=== PATIENT | female | born 1975 | race Caucasian/White ===

== ENCOUNTER 2020-09-22 14:16 | Emergency (ER) | payer OTHER, SELFPAY ==
[2020-09-22 14:25] VITALS: BP 112/63; PULSE 70; RESP 18; TEMP 36.8; O2SAT 99
--- NOTE | 2020-09-22 14:38 | ED.SKABFB ---
HPI - Skin/Abscess/Foreign Bdy General Chief complaint: Skin/Abscess/Foreign Body Stated complaint: Lump on left side of Neck Time Seen by Provider: 09/22/20 14:39 Source: patient Mode of arrival: ambulatory Limitations: no limitations History of Present Illness HPI narrative: Danielle Og is a 45 yo female with a PMH of depression/ anxiety, cardiomyopathy, benign tumor L neck, copd, comes to [facility] with a lump in the left side of her neck that she just noticed this morning. It is tender to touch. Related Data Home Medications Medication Instructions Recorded Confirmed albuterol sulfate INHALATION 09/22/20 ibuprofen 09/22/20 loratadine mg 09/22/20 Allergies Allergy/AdvReac Type Severity Reaction Status Date / Time No Known Allergies Allergy Verified 09/22/20 14:52 [facility] Past Medical History Medical History Asthma Family History Family History (Updated 09/22/20 @ 14:54 by Virginia Cobos CNP) Other Heart disease Throat cancer Social History Social History (Updated 09/22/20 @ 14:55 by Virginia Cobos CNP) Smoking packs per day: 0.5 Smoking cigarettes per day: 10.0 Smoking status: Current every day smoker Alcohol intake: current Comments At time of signature, I agree with nursing past medical, surgical, social and family history. There is no relevant family history pertinent to the presenting complaint. Exam Narrative: Exam Narrative: GENERAL: This is a well-nourished, well-developed patient, in mild distress. HEAD: normocephalic, atraumatic. EYES:Sclera clear/white. Vision is grossly intact. EARS: External ears normal, auditory canals clear and without drainage, TMs normal without perforation. Hearing grossly intact. NOSE: External nose normal without nasal discharge, nares without redness, no rhinorrhea. THROAT: Mucous membranes moist, posterior pharynx mild redness NECK: Neck supple, non-tender CARDIOVASCULAR: Regular rate and rhythm without murmurs, gallops, or rubs. RESPIRATORY: Clear to auscultation. Breath sounds equal bilaterally. No wheezes, rales, or rhonchi. GASTROINTESTINAL: Abdomen soft, SKIN: warm, intact with no suspicious lesions or rash, good texture and turgor. NEURO: awake, alert, and oriented to person, place and time. There were no obvious focal neurologic abnormalities. Steady gait EXTREMITIES: Normal range of motion. BACK: Nontender without deformity Course Course Emergency Course: Comes to the [facility] with a left-sided neck lump that is tender that she discovered this morning Has an appointment for doctor on the States is tender wants medication so we will try treating adenitis with some penicillin She will follow up with her physician MDM - Skin/Abscess/Foreign Bdy Differential Diagnosis Differential diagnosis: Likely abscess of skin or subcutaneous tissue, urticaria, impetigo, contact dermatitis and other (Adenitis) Critical Care Time Critical Care Time Critical Care Time: No Discharge Plan Discharge Clinical Impression: Acute adenitis Patient Disposition: Home, Self-Care Condition: Stable Instructions: Antibiotic Form, Adenitis (ED) Prescriptions: New cephalexin 500 mg capsule 500 mg PO Q8H Qty: 21 RF: 0 No Action ibuprofen 600 mg tablet RF: 0 albuterol sulfate 90 mcg/actuation HFA aerosol inhaler INHALATION RF: 0 loratadine 10 mg tablet RF: 0 Follow-up/Referrals: Kinga,Virginia Richardson APN [Primary Care Provider] - Time of Disposition: 14:58
== END 2020-09-22 15:00 | disposition home or self-care (01) ==
PROVIDERS: Emergency Provider Nurse Practitioner; PCP Nurse Practitioner Family
DX: L04.0 Acute lymphadenitis of face, head and neck (principal); J45.909 Unspecified asthma, uncomplicated
CPT/HCPCS: 99213; G0463

== ENCOUNTER 2020-10-15 10:02 | Emergency (ER) | payer OTHER, SELFPAY ==
[2020-10-15 10:11] VITALS: BP 107/70; PULSE 60; RESP 14; TEMP 37.4; O2SAT 99
--- NOTE | 2020-10-15 10:32 | ED.URI ---
HPI - URI/Sore Throat General Chief Complaint: Upper Respiratory Infection Stated Complaint: neck and throat swollen History of Present Illness HPI Narrative: This a 45-year-old female comes in complaining of a sore throat states that it feels like her throat is swelling says that the sore throat started yesterday. Patient denies taking anything for symptoms patient denies having a fever. Patient states that she is taking some allergy medicine denies having any shortness of breath at this time. Otherwise she Related Data Home Medications Medication Instructions Recorded Confirmed albuterol sulfate 90 mcg INHALATION Q4H PRN 09/22/20 10/15/20 loratadine 10 mg PO DAILY 09/22/20 10/15/20 Allergies Allergy/AdvReac Type Severity Reaction Status Date / Time No Known Allergies Allergy Verified 10/15/20 10:20 Review of Systems Review of Systems: Narrative: CONSTITUTIONAL: Denies fever, chills, or sweats. EYES: Denies visual changes, redness, or discharge. ENT: Denies rhinorrhea, congestion, reports sore throat, or otalgia. CARDIOVASCULAR:Denies chest pain, palpitations, or edema. RESPIRATORY: Denies cough or dyspnea. GASTROINTESTINAL: Denies abdominal pain, nausea, vomiting, or diarrhea. GENITOURINARY: Denies dysuria or hematuria. SKIN:[Denies rash or itching. MUSCULOSKELETAL:Denies back pain, joint pain, or myalgia. NEUROLOGIC: Denies headache, numbness, or weakness. PSYCHIATRIC:Denies anxiety or depression PMFSH Past Medical History Medical History Asthma Family History Family History (Updated 09/22/20 @ 14:54 by Virginia Cobos CNP) Other Heart disease Throat cancer Social History Social History (Updated 09/22/20 @ 14:55 by Virginia Cobos CNP) Smoking packs per day: 0.5 Smoking cigarettes per day: 10.0 Smoking status: Current every day smoker Alcohol intake: current Comments At time as signature, I have reviewed and agree with nursing past medical, social, surgical and family history. Please see nursing chart for further information. There is no relevant family history pertinent to the presenting complaint. Exam Narrative: Exam Narrative: GENERAL:Well-appearing, well-nourished, and in no acute distress. HEAD:Normocephalic, atraumatic. EYES: PERRLA and EOMI. ENT: Nares clear, no rhinorrhea or epistaxis. Mucous membranes moist. Tonsils swollen excessive saliva no erythema noted NECK: Supple. CHEST: Clear to auscultation. No respiratory distress. HEART: Regular rate and rhythm. No murmur heard. Normal peripheral pulses. ABDOMEN: Soft, nontender, nondistended, normal active bowel sounds. EXTREMITIES: Normal range of motion. No edema. SKIN: Warm, dry, no rash. NEURO: No focal deficits. Alert and oriented x3. Course RN SUPPLEMENTAL/PA Physician Supervision Positive strep test Vital Signs Vital signs: Vital Signs Temperature 99.3 F 10/15/20 10:11 Pulse Rate 60 10/15/20 10:11 Respiratory Rate 14 10/15/20 10:11 Blood Pressure 107/70 10/15/20 10:11 Pulse Oximetry 99 10/15/20 10:11 Temperature 99.3 F 10/15/20 10:11 Pulse Rate 60 10/15/20 10:11 Respiratory Rate 14 10/15/20 10:11 Blood Pressure 107/70 10/15/20 10:11 Pulse Oximetry 99 10/15/20 10:11 MDM - URI/Sore Throat Differential Diagnosis Differential diagnosis: Likely upper respiratory infection, sinusitis, bronchitis, influenza and pharyngitis Lab Data Labs: Strep Screen Positive Group A Strep *(Reference Range: Negative)* Discharge Plan Discharge Clinical Impression: Pharyngitis Qualifiers: Pharyngitis/tonsillitis etiology: streptococcus Qualified Code(s): J02.0 - Streptococcal pharyngitis Patient Disposition: Home, Self-Care Condition: Stable Instructions: Antibiotic Form, Strep Throat (ED) Additional Instructions: Strep throat take the medication as prescribed. Salt w
== END 2020-10-15 10:41 | disposition home or self-care (01) ==
PROVIDERS: Emergency Provider Nurse Practitioner Family; PCP Nurse Practitioner Family
DX: J02.0 Streptococcal pharyngitis (principal); J45.909 Unspecified asthma, uncomplicated
CPT/HCPCS: 87880; 99213; G0463

== ENCOUNTER 2021-08-25 09:06 | Emergency (ER) | payer OTHER, SELFPAY ==
[2021-08-25 09:21] VITALS: BP 113/74; PULSE 75; RESP 20; TEMP 36.9; O2SAT 99
--- NOTE | 2021-08-25 09:49 | ED.EYEPROB ---
HPI - Eye Problem General Chief complaint: Eye Problems Stated complaint: left eye Time Seen by Provider: 08/25/21 09:24 Source: patient and RN notes reviewed Mode of arrival: ambulatory Limitations: no limitations History of Present Illness HPI Narrative: Patient presents today complaining of twitching to the left eye with left-sided headache and, head fog that started last night. She also reports some intermittent decreased vision in the left eye. Use she currently denies any pain. She has not taken any medication for symptoms prior to arrival. Denies dizziness, lightheadedness, numbness or tingling in the extremities, nausea or vomiting. Denies redness or drainage in the eye. Denies history of migraines or chronic headaches. Upon arrival, patient's visual acuity was 20/25 in the right eye, and 20/30 in the left affected eye, but she continues to states she is unable to see from the left eye. MD chief complaint: vision change Related Data Home Medications Medication Instructions Recorded Confirmed albuterol sulfate 90 mcg INHALATION Q4H PRN 09/22/20 08/25/21 loratadine 10 mg PO DAILY 09/22/20 08/25/21 Allergies Allergy/AdvReac Type Severity Reaction Status Date / Time No Known Allergies Allergy Verified 08/25/21 09:15 Review of Systems Review of Systems: CONSTITUTIONAL: Denies body aches, fever, chills, or sweats. EYES: Denies redness, or discharge. + Left eye twitching and vision changes ENT: Denies rhinorrhea, congestion, sore throat, or otalgia. CARDIOVASCULAR: Denies chest pain, palpitations, or edema. RESPIRATORY: Denies cough or dyspnea. GASTROINTESTINAL: Denies abdominal pain, nausea, vomiting, or diarrhea. GENITOURINARY: Denies dysuria or hematuria. SKIN: Denies rash, itching, or wounds. MUSCULOSKELETAL: Denies back pain, joint pain, or myalgia. NEUROLOGIC: Denies numbness, tingling, or weakness. + Headache?resolved PSYCH: Denies depression or anxiety. [facility] Past Medical History Medical History Asthma Family History Family History Other Heart disease Throat cancer Social History Social History Smoking packs per day: 0.5 Smoking cigarettes per day: 10.0 Smoking status: Current every day smoker Alcohol intake: current Comments At time of signature, I have reviewed and agree with nursing past medical, surgical, social and family history unless otherwise noted. Please see nursing chart for further information. There is no relevant family history pertinent to the presenting complaint Exam Narrative: GENERAL: Well-appearing, well-nourished, and in no acute distress. HEAD: Normocephalic, atraumatic. EYES: EOMI. PERRL. No redness or drainage. Conjunctivae normal. ENT: Mucous membranes pink and moist. NECK: Normal AROM. Supple. No lymphadenopathy. CHEST: No respiratory distress. Clear to auscultation. HEART: Regular rate and rhythm. No murmur appreciated. Normal peripheral pulses. EXTREMITIES: Normal range of motion. No edema. SKIN: Warm, dry, no rash. Capillary refill normal. Normal skin turgor. NEURO: No focal deficits. Alert and oriented x3. Gait steady. Finger nose test normal. Hand director family equal and strong. Dorsiflexion plantarflexion equal and strong against resistance. PSYCH: Normal affect. No signs of depression or anxiety. Course Course Emergency Course: I feel it indicated to transfer her to the ER for further evaluation, given the complaint of intermittent vision loss in the left eye. Level of Care: Express Care Visit Vital Signs Vital signs: Vital Signs Temperature 98.5 F 08/25/21 09:21 Pulse Rate 75 08/25/21 09:21 Respiratory Rate 20 08/25/21 09:21 Blood Pressure 113/74 08/25/21 09:21 Pulse Oximetry 99 08/25/21 09:21 Temperature 98.5 F 08/25/21 09:21 Pu
== END 2021-08-25 10:02 | disposition short-term general hospital (02) ==
PROVIDERS: Emergency Provider Nurse Practitioner; PCP Nurse Practitioner Family
DX: H54.62 Unqualified visual loss, left eye, normal vision right eye (principal); F17.210 Nicotine dependence, cigarettes, uncomplicated
CPT/HCPCS: 99213; G0463

== ENCOUNTER 2021-08-30 08:52 | Emergency (ER) | payer OTHER, SELFPAY ==
--- NOTE | 2021-08-30 08:56 | ED.URI ---
HPI - URI/Sore Throat General Chief Complaint: Upper Respiratory Infection Stated Complaint: Sore Throat Time Seen by Provider: 08/30/21 08:56 Source: patient and RN notes reviewed History of Present Illness HPI Narrative: Patient is a 46-year-old female who presents the urgent care with complaints of a scratchy throat. Patient states that she woke up with it today and does have typical year-long seasonal allergies. Patient has not taken her Claritin-D this morning. Patient denies of any fevers, nausea or vomiting. Denies of any exposures to illness. No other acute complaints. No acute distress noted. Patient aware of the plan of care. Some parts of this dictation were generated by voice recognition software and may contain typographical and/or grammatical inaccuracies. Related Data Home Medications Medication Instructions Recorded Confirmed loratadine 10 mg PO DAILY 09/22/20 08/25/21 Allergies Allergy/AdvReac Type Severity Reaction Status Date / Time No Known Allergies Allergy Verified 08/25/21 09:15 Review of Systems Review of Systems: CONSTITUTIONAL: Denies fever, chills, or sweats. EYES: Denies visual changes, redness, or discharge. ENT: Denies rhinorrhea, congestion, or otalgia. reports of scratchy throat CARDIOVASCULAR: Denies chest pain, palpitations, or edema. RESPIRATORY: Denies cough or dyspnea. GASTROINTESTINAL: Denies abdominal pain, nausea, vomiting, or diarrhea. GENITOURINARY: Denies dysuria or hematuria. SKIN: Denies rash or itching. MUSCULOSKELETAL: Denies back pain, joint pain, or myalgia. NEUROLOGIC: Denies headache, numbness, or weakness. All other systems reviewed are negative, except as documented in HPI. [facility] Past Medical History Medical History Asthma Family History Family History Other Heart disease Throat cancer Social History Social History Smoking packs per day: 0.5 Smoking cigarettes per day: 10.0 Smoking status: Current every day smoker Alcohol intake: current Comments At the time of my signature, I reviewed and agree with the nursing past medical, surgical, social, and family history. There is no relevant family history pertinent to the patient complaint. Exam Narrative: GENERAL: This is a well-nourished, well-developed patient, in no apparent distress. HEAD: normocephalic, atraumatic. EYES: PERRL. Sclera clear/white. Vision is grossly intact. EARS: External ears normal, auditory canals clear and without drainage, TMs normal without perforation. Hearing grossly intact. NOSE: External nose normal with no obvious nasal discharge, nares without redness, no rhinorrhea. THROAT: Mucous membranes moist. Mild erythema noted posterior oropharynx with moderate postnasal drainage NECK: Neck supple CARDIOVASCULAR: Regular rate and rhythm without murmurs, gallops, or rubs. RESPIRATORY: Clear to auscultation. Breath sounds equal bilaterally. No wheezes, rales, or rhonchi. SKIN: warm, intact with no suspicious lesions or rash, good texture and turgor. NEURO: awake, alert, and oriented to person, place and time. There were no obvious focal neurologic abnormalities. EXTREMITIES: No clubbing, cyanosis, or edema. Course Course Level of Care: Express Care Visit Vital Signs Vital signs: Vital Signs Temperature 98 F 08/30/21 08:57 Pulse Rate 70 08/30/21 08:57 Respiratory Rate 16 08/30/21 08:57 Blood Pressure 120/70 08/30/21 08:57 Pulse Oximetry 100 08/30/21 08:57 Temperature 98 F 08/30/21 08:57 Pulse Rate 70 08/30/21 08:57 Respiratory Rate 16 08/30/21 08:57 Blood Pressure 120/70 08/30/21 08:57 Pulse Oximetry 100 08/30/21 08:57 Reviewed MDM - URI/Sore Throat MDM Narrative Medical decision making narrative: Reviewed lab results with the patient. She is
[2021-08-30 08:57] VITALS: BP 120/70; PULSE 70; RESP 16; TEMP 36.6; O2SAT 100
== END 2021-08-30 09:37 | disposition home or self-care (01) ==
PROVIDERS: Emergency Provider Nurse Practitioner Family; PCP Nurse Practitioner Family
DX: J02.9 Acute pharyngitis, unspecified (principal); T78.40XA Allergy, unspecified, initial encounter; F17.210 Nicotine dependence, cigarettes, uncomplicated; J45.909 Unspecified asthma, uncomplicated
CPT/HCPCS: 87081; 87880; 99213; G0463

== ENCOUNTER 2021-10-28 07:11 | Emergency (ER) | payer OTHER, SELFPAY ==
--- NOTE | ~2021-10-28 | XR_ITS ---
EXAMINATION: XR shoulder RT min 2V DATE: 10/28/2021 07:43 INDICATION: Posterior right shoulder pain post fall TECHNIQUE: AP internally and externally rotated, AP oblique externally rotated and transscapular Y vi ews of the right shoulder were obtained. COMPARISON: None FINDINGS: Normal alignment. There is abnormal cortical contour at the lateral aspect of the right clavicle whic h has a chronic appearance suggesting sequela of chronic fracture. No other lesions suspicious for fr acture identified. Glenohumeral joint is normal. Mild acromioclavicular osteoarthritis. Bone island a t the humeral head. Visualized portions of the right lung are clear. Soft tissues are unremarkable. IMPRESSION: Irregular cortical contour at the lateral clavicle suspicious for fracture but would favor chronic ov er acute. Correlate for point tenderness at this location. Reviewed, dictated and finalized at location A. IMPRESSION: Irregular cortical contour at the lateral clavicle suspicious for fracture but would favor chronic over acute. Correlate for point tenderness at this location .
[2021-10-28 07:23] VITALS: BP 146/75; PULSE 59; RESP 16; TEMP 36.3; O2SAT 100
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
[2021-10-28 08:27] VITALS: BP 146/75; PULSE 59; RESP 16; TEMP 36.3; O2SAT 100
== END 2021-10-28 08:29 | disposition home or self-care (01) ==
PROVIDERS: Emergency Provider Emergency Medicine; PCP Nurse Practitioner Family
DX: S42.034A Nondisplaced fracture of lateral end of right clavicle, initial encounter for closed fracture (principal); W19.XXXA Unspecified fall, initial encounter
CPT/HCPCS: 73030; 99283; A4565

== ENCOUNTER 2024-09-30 09:16 | Emergency (ER) | payer OTHER, SELFPAY ==
[2024-09-30 09:22] VITALS: BP 112/61; PULSE 64; RESP 20; TEMP 37.2; O2SAT 98
[2024-09-30 09:41] LABS: EDSTREPNEGPOS1 Negative (Negative)
--- NOTE | 2024-09-30 09:41 | ED.URI ---
HPI - URI/Sore Throat General Chief Complaint: Upper Respiratory Infection Stated Complaint: Sore Throat Time Seen by Provider: 09/30/24 09:41 Source: patient Mode of arrival: ambulatory Limitations: no limitations History of Present Illness HPI Narrative: 49-year-old female presents with complaint of Headaches, sore throat, hurts mostly to left side. Pain worse with swallowing. Afebrile but reports chills and fatigue. Denies nausea vomiting diarrhea. all systems reviewed and negative except as noted above. Related Data Home Medications ?Medication ?Instructions ?Recorded ?Confirmed ?Last Taken ?Type albuterol sulfate 90 mcg/actuation inhalation 09/30/24 Unknown History aerosol inhaler azelastine 137 mcg (0.1 %) nasal intranasal 09/30/24 Unknown History spray budesonide-formoterol HFA 80 inhalation 09/30/24 Unknown History mcg-4.5 mcg/actuation aerosol inhaler (Symbicort) fexofenadine 180 mg tablet mg 09/30/24 Unknown History (Allergy Relief (fexofenadine)) nicotine 7 mg/24 hr daily 09/30/24 Unknown History transdermal patch pantoprazole 40 mg tablet,delayed mg PO 09/30/24 Unknown History release Allergies Allergy/AdvReac Type Severity Reaction Status Date / Time No Known Allergies Allergy Verified 09/30/24 09:37 Review of Systems Review of Systems: CONSTITUTIONAL: Denies fever, chills, or sweats. EYES: Denies visual changes, redness, or discharge. ENT: Denies rhinorrhea, congestion . Reports sore throat. Denies otalgia. CARDIOVASCULAR: Denies chest pain, palpitations, or edema. RESPIRATORY: Denies cough or dyspnea. GASTROINTESTINAL: Denies abdominal pain, nausea, vomiting, or diarrhea. GENITOURINARY: Denies dysuria or hematuria. SKIN: Denies rash or itching. MUSCULOSKELETAL: Denies back pain, joint pain, or myalgia. NEUROLOGIC: Denies headache, numbness, or weakness. PSYCHIATRIC: Denies anxiety or depression. All other systems reviewed are negative, except as documented in HPI. [facility] Past Medical History Medical History (Updated 09/30/24 @ 09:50 by Niya Mleendrez NP) Asthma Surgical History Surgical History (Updated 10/28/21 @ 08:05 by Isak UriosteguiMD) History of bilateral tubal ligation Family History Family History Other Heart disease Throat cancer Social History Social History Smoking packs per day: 0.5 Smoking cigarettes per day: 10.0 Smoking status: Current every day smoker Alcohol intake: current Comments At time of signature, agree with nursing past medical, surgical, social and family history. There is no relevant family history pertinent to the presenting complaint. Exam Narrative: GENERAL: This is a well-nourished, well-developed patient, in no apparent distress. HEAD: normocephalic, atraumatic. EYES: PERRL. Sclera clear/white. Vision is grossly intact. EARS: External ears normal, auditory canals clear and without drainage, TMs normal without perforation. Hearing grossly intact. NOSE: External nose normal with no obvious nasal discharge, nares without redness, no rhinorrhea. THROAT: Mucous membranes moist, tonsils erythematous, 1+ bilaterally with exudates. No signs of peritonsillar abscess. NECK: Neck supple, non-tender without lymphadenopathy, masses or thyromegaly. CARDIOVASCULAR: Regular rate and rhythm without murmurs, gallops, or rubs. RESPIRATORY: Clear to auscultation. Breath sounds equal bilaterally. No wheezes, rales, or rhonchi. SKIN: warm, Dry, intact with no suspicious lesions or rash, good texture and turgor. NEURO: awake, alert, and oriented to person, place and time. There were no obvious focal neurologic abnormalities. EXTREMITIES: No joint tenderness, effusion, or edema noted. Course Course Level of Care: Express Care Visit Vital Signs Vital signs: Vital Signs Temperature 37.2 C 09/30/24 09:22 Pulse Rate 64 09/30/24 09:22 Respiratory Rate 20 09/30/24 09:22 Blood Pressure 112/61 09/30/24 09:22 Pulse Oximetry 98 09/30/24 09:22 Oxygen Delivery Room Air 09/30/24 09:22 Temperature 37.2 C 09/30/24 09:22 Pulse Rate 64 09/30/24 09:22 Respiratory Rate 20 09/30/24 09:22 Blood Pressure 112/61 09/30/24 09:22 Pulse Oximetry 98 09/30/24 09:22 Oxygen Delivery Room Air 09/30/24 09:22 Reviewed MDM - URI/Sore Throat MDM Narrative Medical decision making narrative: rapid strep negative. Will treat patient with antibiotic due to patient complaints and exam findings. Patient agrees with plan of care. Patient is alert, nontoxic. Differential Diagnosis Differential diagnosis: Likely upper respiratory infection, sinusitis, viral infection and pharyngitis Lab Data Labs: Lab Results 09/30/24 Range/Units 09:40 POC Grp A Strep Screen Negative (Negative) Discharge Plan Discharge Clinical Impression: Acute tonsillitis Qualifiers: Pharyngitis/tonsillitis etiology: unspecified etiology Qualified Code(s): J03.90 - Acute tonsillitis, unspecified Patient Disposition: Home Condition: Stable Instructions: Antibiotic Form, Tonsillitis (ED) Additional Instructions: your strep test was negative today. Due to your symptoms and exam findings I am prescribing an antibiotic. Take antibiotic as prescribed until gone. Take ibuprofen or Tylenol every 6-8 hours as needed for pain and fever. Drink plenty of water and rest. Follow-up with your primary care physician if symptoms are not improving. Patient Language: Polish Prescriptions: New amoxicillin 875 mg tablet 875 mg PO Q12H 10 Days Qty: 20 0RF No Action fexofenadine [Allergy Relief (fexofenadine)] 180 mg tablet pantoprazole 40 mg tablet,delayed release (DR/EC) PO azelastine 137 mcg (0.1 %) spray,non-aerosol INTRANASAL albuterol sulfate 90 mcg/actuation HFA aerosol inhaler INHALATION nicotine 7 mg/24 hr patch 24 hour budesonide-formoterol [Symbicort] 80-4.5 mcg/actuation HFA aerosol inhaler INHALATION Follow-up/Referrals: Kinga,Virginia Richardson APN [Primary Care Provider] - Time of Disposition: 09:50
--- OUTSIDE RECORDS SUMMARY | 2024-09-30 10:00 | XMS_ITS | Encounter Summary ---
Author Organization [facility] Address [address] [place] [address] Phone Care Team Providers Care City Carrier Assistant Name Role Phone Virginia Donato APRN, MEDICAL PHYSICIST Primary Care Provider [phone] Rowan Cruz APRN, MEDICAL PHYSICIST Unavailable + [phone] Isabel Pepe MD Unavailable [phone] Luis Miguel Naranjo MD Unavailable [phone] Luis Miguel Naranjo MD Unavailable [phone] Encounter Details Date Type Department Care Team (Late st Contact Info) Description 12/12/2022 Transcribe Orders [facility] Patient Access Admitting [address] [place] [id number] Juwan Larson MD [address] [place] [address] Right calf pain (Primary Dx) Social History Tobacco Use Types Packs/Day Years Used Date Smoking Tobacco: Every Day Cigarettes Smokeless Tobacco: Never Alcohol Use Standard Drinks/Week Comments No 0 (1 standard drink = 0.6 oz pur e alcohol) Comments No Sex and Gender Information Value Date Recorded Sex Assigned at Female 12/11/2022 9:35 PM CDT Legal Sex Female 3:26 AM CLEAN OUT DRILLER HELPER Gender Identity Female 12/11/2022 9:35 PM CDT Sexual Orientation Not on file COVID-19 Exposure Response Date Recorded In the last 10 days, have yo u been in contact with someone who was confirmed or suspected to have Coronavirus/COVID-19? No / Unsure 12/11/2022 9:31 PM CDT documented as of this encounter Plan of Treatment Upcoming Encounters Date Type Department Care Team (Late st Contact Info) Description 12/01/2024 8:30 AM CDT [facility] [address] [place] [address] Ritika Coronel, EARTH BURNER, BURLAP WORKER [address] [place] [address] documented as of this encounter Results * (ABNORMAL) D-DIMER (12/12/2022 8:29 AM CDT) D DIMER 0.72(H) <0.50 mcg/mL FEU 12/12/2022 8:58 AM CDT [facility] Blood Venipuncture / Unknown 12/12/2022 8:29 AM CDT 12/12/2022 8:39 AM CDT Narrative [facility] - 12/12/2022 8:58 AM CDT The FDA has approved this method to exclude the diagnosis of DVT and/or PE at the cutoff value of <0.50 mcg/mL FEU. us Juwan Larson MD HEMATOLOGY ORDERABLES Fin al Result [facility] [address] [place] [address] documented in this encounter Visit Diagnoses Diagnosis Right calf pain- Primary documented in this encounter Additional Health Concerns Infection Onset Date Last Indicated Resolved Time COVID - 19 04/08/2023 04/08/2023 04/18/2023 12:1 6 AM CLEAN OUT DRILLER HELPER COVID - 19 06/06/2023 06/06/2023 06/06/2023 11:4 7 AM CLEAN OUT DRILLER HELPER COVID - 19 Confirmed 06/06/2023 06/06/2023 024 12:16 AM CLEAN OUT DRILLER HELPER documented as of this encounter Care Teams City Carrier Assistant Relationship Specialty Start Date End Date Virginia Donato APRN, MEDICAL PHYSICIST [address] [facility] [address] [place] [address] PCP - General Family Medicine 11/30/15 Rowan Cruz APRN, MEDICAL PHYSICIST #2 [facility] [address] [place] [address] Nurse Practitioner Cardiology 08/19/23 Isabel Pepe MD #2 [facility] [address] [place] [address] Consulting Physician Urology 12/27/23 Luis Miguel Naranjo MD [address] [place] [address] Consulting Physician Obstetrics & Gynecology 02/05/24 Luis Miguel Naranjo MD [address] [place] [address] Consulting Physician Obstetrics & Gynecology 03/13/24 documented as of this encounter
--- OUTSIDE RECORDS SUMMARY | 2024-09-30 10:01 | XMS_ITS | Encounter Summary ---
Author Organization [facility] Address [address] [place] [address] Phone Care Team Providers Care Hand Bunch Maker Name Role Phone Virginia Donato APRN, DOCTOR OF OPTOMETRY Primary Care Provider [phone] Rowan Cruz APRN, DOCTOR OF OPTOMETRY Unavailable [phone] Isabel Pepe MD Unavailable [phone] Luis Miguel Naranjo MD Unavailable [phone] Luis Miguel Naranjo MD Unavailable [phone] Reason for Referral * PT/OT/ST (Routine) - Authorized Specialty Diagnoses / Procedures Referred By Contac t Referred To Contact Physical Therapy Diagnoses Radiculopathy, lumbar region Other dorsalgia Pain in left shoulder Kaykay Fairchild PAC [address] [place] [address] Phone: tel: fax: [facility] [address] [facility], [address] [address] Phone: tel: fax: Referral ID Status Reason Start Date Expiration Date V isits Requested Visits Authorized [id number] Authorized 05/29/2024 50 12 Scheduling Instructions GRINDER APPRENTICE Encounter Details Date Type Department Care Team (Latest Contact Info) Description 05/29/2024 Transcribe Orders [facility] [address] [place] [address] Kaykay Fairchild PAC [address] [place] [address] Radiculopathy, lumbar region (Primary Dx); Other dorsalgia Social History Tobacco Use Types Packs/Day Years Used Date Smoking Tobacco: Every Day Cigarettes Smokeless Tobacco: Never Alcohol Use Standard Drinks/Week Comments No 0 (1 standard drink = 0.6 oz pur e alcohol) Sexually Active Control Partners Comments Not Currently Comments Unknown Sex and Gender Information Value Date Recorded Sex Assigned at Female 12/11/2022 9:35 PM CDT Legal Sex Female 3:26 AM LENS GRINDER APPRENTICE Gender Identity Female 12/11/2022 9:35 PM CDT Sexual Orientation Not on file documented as of this encounter Plan of Treatment Upcoming Encounters Date Type Department Care Team (Late st Contact Info) Description 12/01/2024 8:30 AM CDT [facility] [address] [place] [address] Ritika Coronel APRN, SIGN DESIGNER [address] [place] [address] Scheduled Referrals Name Type Priority Associated Diagnoses Orde r Schedule PHYSICAL THERAPY REFERRAL Outpatient Referral Routine Radiculopathy, lumbar region Other dorsalgia Expected: 05/29/2024, Expires: 05/29/2025 documented as of this encounter Visit Diagnoses Diagnosis Radiculopathy, lumbar region- Primary Thoracic or lumbosacral neuritis or radiculitis, unspecified Other dorsalgia documented in this encounter Care Teams Hand Bunch Maker Relationship Specialty Start Date End Date Virginia Donato APRN, DOCTOR OF OPTOMETRY [address] [place] [address] PCP - General Family Medicine 11/30/15 Rowan Cruz APRN, DOCTOR OF OPTOMETRY [address] [facility] [address] [place] [address] Nurse Practitioner Cardiology 08/19/23 Isabel Peep MD #[address] [place] [address] Consulting Physician Urology 12/27/23 Luis Miguel Naranjo MD #[address] [place] [address] Consulting Physician Obstetrics & Gynecology 02/05/24 Luis Miguel Naranjo MD #[address] [place] [address] Consulting Physician Obstetrics & Gynecology 03/13/24 documented as of this encounter
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
--- OUTSIDE RECORDS SUMMARY | 2024-09-30 10:01 | XMS_ITS | Referral Summary ---
Author Organization [facility] Address [address] [place] [address] Care Team Providers Care Warehouse Helper Name Role Phone Virginia Donato NP Primary Care Provider [phone] Encounters Date Type Department Care Team Description 08/06/2024 Telephone [facility] Pulmonary at [address] [place] [address] Emi Meyer LPN Med Management 08/05/2024 10:45 AM CDT Office Visit [facility] Pulmonary at [address] [place] [address] Guzman Rosales DO Asthma-COPD overlap syndrome (HCC) (Primary Dx); Chronic rhinosinusitis; Gastroesophageal reflux disease without esophagitis; Tobacco use disorder from Last 3 Months Allergies Active Allergy Reactions Criticality Noted Date [...] mg total) by mouth daily 30 tablet 11 02/04/[address] (PROTONIX) [...] after use. Do not swallow. 1 each 08/08/19 25 Active nicotine (NICODERM CQ) 7 mgIndications: Tobacco use disorder Place 1 patch on the skin daily for 24 hours 18 patch 09/12/19 25 025 Active nicotine (NICODERM CQ) [address] 1 patch on the skin daily for 24 hours 18 patch 08/22/19 025 Discontinued Active Problems Problem Noted Date Diagnosed Date Asthma-COPD overlap syndrome 05/06/2024 Chronic rhinosinusitis 05/06/2024 Gastroesophageal reflux disease without esophagi tis 05/06/2024 Tobacco use disorder 02/04/2024 Social History Tobacco Use Types Packs/Day Years [...] on file Legal Sex Female 3:40 AM FIELD COORDINATOR Gender Identity Not on file Sexual Orientation Not on file Last Filed Vital Signs Vital Sign Reading Time Taken Comments Blood Pressure 110/70 08/05/2024 10:52 AM CDT Pulse 81 08/05/2024 10:52 AM CDT Temperature 36.6 C (97.9 F) 08/05/2024 10:52 AM CDT Respiratory Rate 18 06/26/2024 3:35 PM FIELD COORDINATOR Oxygen Saturation 96% 08/05/2024 10:52 AM CDT Inhaled Oxygen Concentration - - Weight 78.2 kg (172 lb 4.8 oz) 08/05/2024 10:52 AM CDT Height 157.5 cm (5' 2) 08/05/2024 10:52 AM CDT Body Mass Index 31.51 08/05/2024 10:52 AM CDT Plan of Treatment Not on file Insurance [facility] Member Subscriber Plan / Payer (Ef fective 2019-Present) Name:Danielle Og Relation to Subscriber:Self Name:Danielle Og Payer ID:[id number] (NAIC) Type:MEDICAID RISK OTHER Address: [place] [id number] [facility] Care Teams Warehouse Helper Relationship Specialty Start Date End Date Virginia Donato NP [address] [place] [address] PCP - General 11/03/19
--- OUTSIDE RECORDS SUMMARY | 2024-09-30 10:01 | XMS_ITS | CONTINUITY OF CARE DOCUMENT ---
Author Name ritu jennifertg Address Unknown Organization [facility] Address [address] [place] [address] Phone [phone] Care Team Providers Care Park Keeper Name Role Phone Ras Milton MD Unavailable AKINS SCULPTURE CONSERVATOR-C, MARCELA Unavailable [phone] AKINS SCULPTURE CONSERVATOR-C, MARCELA Unavailable [phone] PROBLEMS Condition Status Date Provider Notes Right ventricular dilatation active Ras Milton MD Smoker active Ras Milton MD Dyspnea on exertion active Ras Argueta Abnormal EKG active Ras Milton MD Chest pain active Ras Milton MD Anxiety active Ras Milton MD Snoring, no YENNIFER active Ras Milton MD ENCOUNTERS Date Type Provider Location Encounter Diag nosis - In-person encounter Office Visit Ras Milton MD [facility] - In-person encounter Office Visit Ras Milton MD [facility] - In-person encounter Office Visit Ras Milton MD [facility] Snoring, no YENNIFER - In-person encounter Office Visit Ras Milton MD [facility] - In-person encounter Office Visit Ras Milton MD [facility] - In-person encounter Office Visit Ras Milton MD [facility] Right ventricular dilatationSmokerDyspnea on exertionAbnormal EKGChest painAnxietySnoring, no YENNIFER VITAL SIGNS Date Observation Value Provider blood pressure, diastolic 79 mm[Hg] Li [facility]kLog[facility] blood pressure, systolic 106 mm[Hg] Vianca [facility]Log[facility] Body Mass Index (Ratio) 23.96 kg/m2 Will Milton MD blood pressure, cuff size large Ta kourtney [place] blood pressure, diastolic 79 mm[Hg] [facility] blood pressure, systolic 106 mm[Hg] [facility] oxygen saturation, oximetry 97 % [facility] respiratory rate E&M 14 /min [facility] pulse rate 72 /min [facility] weight E&M 131.0 [lb_av] [facility] height E&M 62 [in_i] [facility] Body Mass Index (Ratio) 27.25 kg/m2 Trac dino Lively blood pressure, diastolic 84 mm[Hg] Ma rsha O'Patrick blood pressure, systolic 122 mm[Hg] Mar chary O'Patrick oxygen saturation, oximetry 97 % Brianna O'Patrick respiratory rate E&M 16 /min Brianna O'Patrick pulse rate 55 /min Brianna O'Patrick blood pressure, resting Yes Reliance flores O'Patrick weight E&M 149 [lb_av] Brianna O'Patrick height E&M 62 [in_i] Brianna O'Patrick Body Mass Index (Ratio) 26.70 kg/m2 Will Milton MD blood pressure, diastolic 73 mm[Hg] Cy ann Small blood pressure, systolic 117 mm[Hg] Sonali Small respiratory rate E&M 16 /min Susan Small blood pressure, cuff size regular Cy nthimarcelo Small oxygen saturation, oximetry 97 % Susan Small pulse rate 74 /min Susan hyman weight E&M 146 [lb_av] Susan Torres l height E&M 62 [in_i] Susan Torres l Body Mass Index (Ratio) 26.34 kg/m2 Will Milton MD blood pressure, diastolic 78 mm[Hg] Ni kki Meera blood pressure, systolic 122 mm[Hg] Srinivas [place] Meera oxygen saturation, oximetry 97 % Berenice Meera pulse rate 97 /min Beernice Meera weight E&M 144 [lb_av] Berenice Meera height E&M 62 [in_i] Berenice Meera temperature site temporal Monae Tank sley temperature E&M 97.7 [degF] Monae Tanks andres Body Mass Index (Ratio) 26.34 kg/m2 Will Milton MD blood pressure, resting No Tons flores Laurent blood pressure, diastolic, left arm 69 mm [Hg] Tonsha Laurent blood pressure, systolic, left arm 106 mm [Hg] Tonsha Laurent blood pressure, diastolic, right arm 74 m m[Hg] Tonsha Laurent blood pressure, systolic, right arm 104 m m[Hg] Tonsha Laurent blood pressure, diastolic 69 mm[Hg] To nsha Laurent blood pressure, systolic 106 mm[Hg] Ton sha Laurent oxygen saturation, oximetry 97 % Tonsha Laurent respiratory rate E&M 16 /min Tonsha Laurent pulse rate 75 /min Tonsha Laurent weight E&M 144 [lb_av] Tonsha Laurent height E&M 62 [in_i] Tonsha Laurent ALLERGIES No Known Drug Allergies RESULTS Date Observation Value Provider Reference Range Interpretation Location pro brain natriuretic peptide 77 pg/mL [facility] 0-130 D-dimer quantitative mcg/mL 0.41 MG/L FEU [facility] 0.00-0.49 thyroid stimulating hormone, serum 2.090 u[IU]/mL [facility] 0.450-4.500 lipoprotein, beta, serum, point, quantitative, calculated 149 mg/dL [facility] 0-99 High very low density lipoproteins 23 mg/dL [facility] 5-40 HDL cholesterol, serum 51 mg/dL [facility] >39 triglyceride, serum, random 113 mg/dL [facility] 0-149 cholesterol, serum 223 mg/dL [facility] 100-199 High calcium, serum 9.3 mg/dL [facility] 8.7-10.2 carbon dioxide, venous blood 25 mmol/L [facility] 20-29 chloride, serum 104 mmol/L [facility] 96-106 potassium, serum 5.0 mmol/L [facility] 3.5-5.2 sodium, serum 145 mmol/L [facility] 134-144 High urea nitrogen/creatini ne ratio, serum 13 [facility] 9-23 eGFR if 98 mL/min/{1. 73_m2} [facility] >59 eGFR if not 85 mL/min/{1. 73_m2} [facility] >59 creatinine, serum 0.85 mg/dL [facility] 0.57-1.00 urea nitrogen, blood 11 mg/dL [facility] 6-24 blood glucose, random 86 mg/dL [facility] 65-99 platelet count 297 X10E3/UL [facility] [phone]/03/20 red blood cell distribution width 12.2 % [facility] 11.7-15.4 mean corpuscular hemoglobin concentration, RBC 32.4 G/DL [facility] 31.5-35.7 mean corpuscular hemoglobin, RBC 29.7 pg [facility] 26.6-33.0 mean corpuscular volume, RBC 92 fL [facility] 79-97 hematocrit, blood 43.5 % [facility] 34.0-46.6 hemoglobin, blood 14.1 g/dL [facility] 11.1-15.9 erythrocyte (RBC) count 4.74 X10E6/UL [facility] 3.77-5.28 leukocyte count, blood 8.3 X10E3/UL [facility] 3.4-10.8 HISTORY OF MEDICATION USE Medication Status Instructions Dates Provider Indications Com ments loratadine 10 mg tablet active Take 1 tablet by mouth once a day Brianna O'Patrick ProAir HFA 90 mcg/actuation HFA aerosol inhaler active Take 2 puff by mouth every four hours as needed 2 Brianna O'Patrick #8.5, 17 days supply, Prescribed by MARCELA AKINS Filled 06/22/2019 SOCIAL HISTORY Date Observation Value Provider social history E&M S moking History: Nathaniel edwards currently smokes every day. Nathaniel edwards has been counseled to quit. Ras Milton MD smoking/tobacco cess ation, patient education and counseling yes Ras Milton MD social history reviewed E&M revi ewed - no changes required Ras Milton MD smoking history, tot al pack/day 1 Jodi Fairbanks number of years as a smoker 28 a Jodi Fairbanks cigarette use yes Jodi Fairbanks smoking status Current every day smoker T seda Fairbanks smoking/tobacco cess ation, patient education and counseling yes Brianna Cantu smoking, date started 1996 Brianna Cantu smoking history, tot al pack/year 365 Brianna Chase'Patrick cigarette use yes Brianna Chase'Patrick smoking status Current every day smoker M silvestre Cantu social history E&M S moking History: P atient currently smokes every day. P atient has been counseled to quit. Ras Milton MD social history reviewed E&M revi ewed - no changes required Ras Milton MD smoking/tobacco cess ation, patient education and counseling yes Susan Small smoking, date started 1996 Jorge Small smoking history, tot al pack/year 365 Susan Small cigarette use yes Susan monroy smoking status Current every day smoker Sam Small social history E&M S moking History: P atient currently smokes every day. P atient has been counseled to quit. Jacques Garcia social history reviewed E&M revi ewed - no changes required Jacques Garcia smoking/tobacco cess ation, patient education and counseling yes Berenice Meera smoking, date started 1996 Berenice Estes smoking history, tot al pack/year 365 Berenice Mitchellafford cigarette use yes Berenice Meera smoking status Current every day smoker N lovei Meera smoking/tobacco cess ation, patient education and counseling yes Ras Milton MD number of grandchildren Ras Milton MD social history E&M S moking History: P atient currently smokes every day. P atient has been counseled to quit. Ras Milton MD social history reviewed E&M revi ewed - no changes required Ras Milton MD smoking, date started 1996 Tonsha Laurent smoking history, tot al pack/year 365 Tonsha Laurent cigarette use yes Tonsha Laurent smoking status Current every day smoker T onsha Laurent FAMILY HISTORY Family Member Condition Father Family History Unkno wn Mother Family History of Co ronary Artery Disease: INSURANCE PROVIDERS Payer name Policy type / Coverage type [place] [employer] party ID RAI MEDICAID Medicaid [id number] ADVANCE DIRECTIVES Name Date DISCUSSED - NO DECISION MADE TREATMENT PLAN Date Name Performer [id number],S, Ras Cardoza ra, [place] [id number],S, Ras Cardoza ra, [place] [id number],S, Ras Cardoza ra[place] [id number],S, Ras Cardoza ra, [place] [id number],S, Ras Cardoza ra, [place] [id number],S, Ras Cardoza ra, [place] [id number],B, Ras Cardoza ra, [place] [id number],S, Ras Cardoza ra, MD [id number],S, Ras Cardoza ra, [place] [id number],B, Ras Cardoza ra, MD Cardiology Ras Argueta Cardiology Ras Argueta Cardiology Ras Argueta Cardiology Ras Argueta Cardiology Ras Argueta Cardiology Ras Argueta Cardiology Ras Argueta Cardiology Ras Argueta Cardiology Ras Argueta Cardiology Ras Argueta Cardiology follow up Ras noel MD Cardiology follow up Ras noel MD Cardiology follow up : 0 .5-1 PPD. 23 year hx. c essation encouraged Ras Milton MD Cardiology follow up Ras noel MD Cardiology follow up Ras noel MD Cardiology Jacques Garcia Cardiology: 0 .5-1 PPD. 23 year hx. c essation encouraged Jacques Nacht Cardiology Jacques Nacht Cardiology Jacques Nacht Cardiology Jacques Nacht Cardiology Ras Argueta Cardiology Ras Argueta Cardiology Ras Argueta Cardiology: 0 .5-1 PPD. 23 year hx. c essation encouraged Ras Milton MD Date Name Sleep Study Home Stress Exercise Card iolite TSH, 3RD GENERATION W/REFLEX TO FT4 LIPID PANEL D-DIMER, QUANTITATIV E PROBNP, N TERMINAL CBC (H/H, RBC, INDIC ES, WBC, PLT) BASIC METABOLIC PANE L W/EGFR Sleep Study Home Stress Exercise Card iolite DLCO - 25095 FRC - 62021 FVC - 35106 HISTORY OF PROCEDURES Procedure Date Procedure Name Provider Procedure Notes S tatus EKG Ras Milton MD complet ed Cardiolite, 2 units Ras Milton MD completed SPECT Images Ras Milton MD compl eted Stress EKG Ras Milton MD complet ed EKG Ras Milton MD complet ed FVC / MVV with bronchodilator - 07100 Ras Milton MD completed FRC - 21066 Ras Milton MD comple matt SpO2 w/o 6min walk/titration Ras Milton MD completed DLCO - 01896 Ras Milton MD compl eted EKG Ras Milton MD complet ed
--- OUTSIDE RECORDS SUMMARY | 2024-09-30 10:01 | XMS_ITS | Clinical Summary ---
Author Organization [facility] Address [address] [place] [address] Phone Care Team Providers Care Stone Rubber Name Role Phone Virginia Donato APRN, FORMULA ROOM WORKER Primary Care Provider [phone] Rowan Cruz APRN, FORMULA ROOM WORKER Unavailable + [phone] Isabel Pepe MD Unavailable [phone] Luis Miguel Naranjo MD Unavailable [phone] Luis Miguel Naranjo MD Unavailable [phone] Allergies Active Allergy Reactions Criticality Noted Date Comments Adhesive Tape Rash 06/05/2017 Medications aspirin 81 MG Chewable Tablet Take 81 mg by mouth daily. Active albuterol 108 (90 Base) MCG/ACT Aerosol Solution take 2 Puffs by inhalation. 4 Active naproxen (NAPROSYN) 500 MG TabletIndication s:Pain Take 1 Tablet by mouth 2 times daily (with meals). Indications: Pain 30 Tablet 4 Active pantoprazole (PROTONIX) 40 MG Tablet Delayed Response Take 40 mg by mouth daily. 4 Active pantoprazole (PROTONIX) 40 MG Recon Soln 4 Active Psyllium (METAMUCIL 3 IN 1 DAILY FIBER PO) 4 Active fexofenadine (TREY) 180 MG Tablet Take 180 mg by mouth daily. 4 Active tiZANidine HCl (Zanaflex) 4 MG Capsule Take 1 Capsule by mouth 3 times daily. 20 Capsule 4 Active ondansetron (ZOFRAN-ODT) 4 MG TABLET DISPERSIBLE Take 1 Tablet by mouth every 8 hours as needed for Nausea - 1st line. 20 Tablet 4 Active clopidogrel (PLAVIX) 75 MG Tablet Take 1 Tablet by mouth daily. 30 Tablet 5 Active methylPREDNISolo ne (MEDROL DOSPACK) 4 MG Tablet Therapy Pack See product package insert for dosing schedule 21 Tablet 5 Active Active Problems Problem Noted Date Diagnosed Date Anxiety state Arthropathy Cough Constipation Neoplasm Encounters Date Type Department Care Team Description 09/11/2024 10:57 PM CDT - 09/12/2024 12:16 AM CDT Emergency [facility] Emergency [address] [place] [address] Ismael Stewart MD Trigeminal neuralgia Discharge Disposition: Discharged to home or Selfcare 09/11/2024 Travel 09/04/2024 1:15 AM CDT - 09/04/2024 2:33 AM CDT Emergency [facility] [address] [place] [address] Juwan Larson MD Chest wall pain Discharge Disposition: Discharged to home or Selfcare 09/04/2024 Travel 08/23/2024 10:06 PM CDT - 08/23/2024 11:34 PM CDT [facility] [address] [place] [address] Juwan Larson MD Hematuria Discharge Disposition: Discharged to home or Selfcare 08/23/2024 Travel 07/17/2024 8:30 AM CDT Physical Therapy [facility] [address] [facility], [place] [address] [address] Kaykay Fairchild, PAC Severo Gomez, DENTAL RESIDENT Radiculopathy, lumbar region (Primary Dx) Discharge Disposition: Discharged to home or Selfcare 07/15/2024 Travel 07/09/2024 8:30 AM CDT Physical Therapy [facility] [address], [place] [address] [place] [address] Kaykay Fairchild, TRAVON Mcgee, Mary M, PT Radiculopathy, lumbar region (Primary Dx) Discharge Disposition: Discharged to home or Selfcare 07/08/2024 Travel 07/07/2024 8:45 AM CDT Physical Therapy [facility] [address], [place] [address] [place] [address] Kaykay Fairchild PAC Middleton, Mary M, PT Radiculopathy, lumbar region (Primary Dx) Discharge Disposition: Discharged to home or Selfcare 07/05/2024 Travel 07/03/2024 8:00 AM CDT Physical Therapy [facility] [address], [place] [address] Kaykay Fairchild, TRAVON Mcgee, Mary M, PT Radiculopathy, lumbar region (Primary Dx) Discharge Disposition: Discharged to home or Selfcare 07/02/2024 Travel 07/01/2024 8:30 AM CDT Physical Therapy [facility] [address], [place] [address] [place] [address] Kaykay Fairchild PAC Stewart, James R, DENTAL RESIDENT Radiculopathy, lumbar region (Primary Dx) Discharge Disposition: Discharged to home or Selfcare 07/01/2024 Travel from Last 3 Months Immunizations Immunization Administration Dates Next Due Covid-19, Mrna, Lnp-s, Pf, 3 0 Mcg/0.3 Ml Dose (Pfizer) 01/17/2021 TDAP Vaccine 02/23/2015,11/04/2012,04/22/2012 Social History Tobacco Use Types Packs/Day Years Used Date Smoking Tobacco: Every Day Cigarettes Smokeless Tobacco: Never Tobacco Cessation:Ready to Q uit: Not Asked; Counseling Given: Not Answered Alcohol Use Standard Drinks/Week Comments No 0 (1 standard drink = 0.6 oz pur e alcohol) Sexually Active Control Partners Comments Not Currently Comments No Sex and Gender Information Value Date Recorded Sex Assigned at Female 12/11/2022 9:35 PM CDT Legal Sex 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 Gender Identity Female 12/11/2022 9:35 PM CDT Sexual Orientation Not on file Last Filed Vital Signs Vital Sign Reading Time Taken Comments Blood Pressure 115/78 09/12/2024 12:00 AM CDT Pulse 69 09/12/2024 12:00 AM CDT Temperature 36.8 C (98.3 F) 09/11/2024 11:01 PM CDT Respiratory Rate 18 09/11/2024 11:0 1 PM CDT Oxygen Saturation 97% 09/12/2024 12: 00 AM CDT Inhaled Oxygen Concentration - - Weight 79.3 kg (174 lb 13.2 oz) 025 11:01 PM CDT Height 157.5 cm (5' 2) 09/11/2024 11:0 1 PM CDT Body Mass Index 31.98 09/11/2024 11:01 PM CDT Plan of Treatment Upcoming Encounters Date Type Department Care Team (Late st Contact Info) Description 12/01/2024 8:30 AM CDT Office Visit [facility] - Neurology [facility] [address] [place] [address] Ritika Coronel, FORESTER [employer]ULTURE, COMMISSARY PRODUCTION SUPERVISOR [address] [place] [address] Health Maintenance Due Date Last Done Comments Hepatitis C Virus (HCV) Screening 1977 Hepatitis B Immunization (1 of 3 - 19+ 3-dose series) 1996 Pneumococcal Immunization Combined (1 of 2 - PCV) 1996 Pap Smear 1998 Cervical Cancer Screening (CCS) 2007 HPV/Cotest 2007 Cologuard 2022 Colonoscopy 2022 Colorectal Cancer Screening 2022 Immunochemical Fecal Occult Blood 2022 SARS-COV-2 Immunization ( season) 2023 08/14/2021, 02/08/2021, 01/17/2021 Influenza Immunization (Season Ended) 2024 Td Immunization Every 10 Years (Adults With 1 Tdap) 02/23/2025 02/23/2015, 11/04/2012, 04/22/2012 Mammogram 03/25/2025 03/25/2024, 01/20, 12/20/2021, Additional history exists Respiratory Syncytial Virus (RSV) Immunization (Adult) (1 - 1-dose 75+ series) 2052 DTaP/Tdap/Td Immunization Discontinued 2014, 11/04/2012, 04/22/2012 TdaP Immunization Discontinued 02/23/2015, , 04/22/2012 Discussion re Starting/Frequency of Mammograms Completed 03/25/2024, 02/05/2023, 12/20/2021, Additional history exists Human Papillomavirus (HPV) Immunization Aged Out No longer eligible based on patient's age to complete this topic Meningococcal Immunization (ACWY) Aged Out No longer eligible based on patient's age to complete this topic Rotavirus Immunization Aged Out No lo nger eligible based on patient's age to complete this topic Procedures Procedure Name Priority Date/Time Associated Diagnosis Comments CT HEAD OR BRAIN WO CONTRAST Stat with Interpretation 09/11/2024 11:34 PM CDT CBC WITH AUTO DIFFERENTIAL STAT 09/11/2024 11:13 PM CDT HUMAN CHORIONIC GONADOTROPIN SCRN SERUM STAT 09/11/2024 11:13 PM CDT MAGNESIUM (MG) STAT 09/11/2024 11:13 PM CDT CMP (COMPREHENSIVE METABOLIC PANEL) STAT 09/11/2024 11:13 PM CDT COMPLETE BLOOD COUNT (CBC) WITH DIFF STAT 09/11/2024 11:13 PM CDT XR CHEST SINGLE VIEW PORTABLE STAT 09/04/2024 1:33 AM CDT BLUE TOP TUBE STAT 09/04/2024 12:13 AM CDT CBC WITH AUTO DIFFERENTIAL STAT 09/04/2024 12:13 AM CDT EXTRA TUBES STAT 09/04/2024 12:13 AM CDT HUMAN CHORIONIC GONADOTROPIN SCRN SERUM STAT 09/04/2024 12:13 AM CDT TROPONIN I, HIGH SENSITIVITY (HSTRP) STAT 09/04/2024 12:13 AM CDT CMP (COMPREHENSIVE METABOLIC PANEL) STAT 09/04/2024 12:13 AM CDT COMPLETE BLOOD COUNT (CBC) WITH DIFF STAT 09/04/2024 12:13 AM CDT EKG 12 LEAD STAT 09/03/2024 11:58 PM CDT EKG SCAN 09/03/2024 12:00 AM CDT URINALYSIS REFLEX IF INDICATED BY ABNORMAL RESULTS STAT 08/23/2024 10:34 PM CDT DAQUAN SCREENING BILATERAL DIGITAL W CAD W LUCIO Routine 03/25/2024 1:33 PM HIDE AND SKIN CLASSER Encounter for screening mammogram for malignant neoplasm of breast from Last 3 Months or Most Recently Relevant to Health Maintenance Results * CT HEAD OR BRAIN WO CONTRAST (09/11/2024 11:34 PM CDT) Anatomical Region Laterality Modality Head N/A Computed Tomogra phy 09/11/2024 11:5 0 PM CDT Impressions 09/11/2024 11:53 PM CDT IMPRESSION: No acute abnormality identified. Narrative 09/11/2024 11:53 PM CDT EXAM DESCRIPTION: CT HEAD OR BRAIN WO CONTRAST REASON FOR STUDY: Right facial pain and numbness worsening today TECHNIQUE: Axial images acquired through the brain without intravenous contrast. Images stored on PACS. Automated exposure control was used as a dose optimization technique for this examination. COMPARISON: 05/10/2024 FINDINGS: BRAIN: No mass, hemorrhage, or recent infarct. Normal white matter. Volume within normal limits for age. VASCULAR: No dense vessel or obvious aneurysm. EXTRA-AXIAL SPACES: No mass or fluid collection. ORBITS/GLOBES: Unremarkable. SOFT TISSUES: Unremarkable. BONES/SINUSES: No fracture or lesion. Paranasal sinuses and other skullbase airspaces are clear. THIS IS AN ELECTRONICALLY VERIFIED FINAL REPORT 09/11/2024 11:50 PM - Electronically signed by Jim Barnes M.D. AR: RAVEN Report ID: [id number] Reading Location: [id number] Procedure Note Jim Barnes MD - 09/11/2024 EXAM DESCRIPTION: CT HEAD OR BRAIN WO CONTRAST REASON FOR STUDY: Right facial pain and numbness worsening today TECHNIQUE: Axial images acquired through the brain without intravenous contrast. Images stored on PACS. Automated exposure control was used as a dose optimization technique for this examination. COMPARISON: 05/10/2024 FINDINGS: BRAIN: No mass, hemorrhage, or recent infarct. Normal white matter. Volume within normal limits for age. VASCULAR: No dense vessel or obvious aneurysm. EXTRA-AXIAL SPACES: No mass or fluid collection. ORBITS/GLOBES: Unremarkable. SOFT TISSUES: Unremarkable. BONES/SINUSES: No fracture or lesion. Paranasal sinuses and other skullbase airspaces are clear. THIS IS AN ELECTRONICALLY VERIFIED FINAL REPORT 09/11/2024 11:50 PM - Electronically signed by Jim Barnes M.D. AR: RAVEN Report ID: [id number] Reading Location: [id number] IMPRESSION: No acute abnormality identified. us Ismael Stewart MD IM CT ORDERABLES Final R esult * (ABNORMAL) CBC with Auto Differential (09/11/2024 11:13 PM CDT) Only the most recent of2 resultswithin the time period is included. WBC 9.68 4.00 - 12.00 10(3)/mcL 09/11/2024 11:30 PM CDT [facility] RBC 4.74 3.80 - 5.30 10(6)/mcL 09/11/2024 11:30 PM CDT [facility] HEMOGLOBIN (HGB) 14.0 12.0 - 15.8 g/dL 09/11/2024 11:30 PM CDT [facility] HEMATOCRIT (HCT) 42.0 36.0 - 47.0 % 09/11/2024 11:30 PM CDT [facility] MCV 88.6 82.0 - 96.0 fL 09/11/2024 11:30 PM CDT [facility] MCH 29.5 26.0 - 34.0 pg 09/11/2024 11:30 PM CDT [facility] MCHC 33.3 31.0 - 36.0 g/dL 09/11/2024 11:30 PM CDT [facility] PLATELET COUNT 290 140 - 440 10(3)/mcL 09/11/2024 11:30 PM CDT [facility] RDW 13.9 11.8 - 15.5 % 09/11/2024 11:30 PM CDT [facility] MPV 10.2 9.7 - 12.4 fL 09/11/2024 11:30 PM CDT [facility] NEUTROPHILS 53.7 47.0 - 73.0 % 09/11/2024 11:30 PM CDT [facility] LYMPHOCYTES 37.6 18.0 - 42.0 % 09/11/2024 11:30 PM CDT [facility] MONOCYTES 5.5 4.0 - 12.0 % 09/11/2024 11:30 PM CDT [facility] EOSINOPHILS 2.8 0.0 - 5.0 % 09/11/2024 11:30 PM CDT [facility] BASOPHILS 0.4 0.0 - 1.0 % 09/11/2024 11:30 PM CDT [facility] ABSOLUTE NEUTROPHILS 5.20 1.60 - 7.70 10(3)/mcL 09/11/2024 11:30 PM CDT [facility] ABSOLUTE LYMPHOCYTES 3.64(H) 1.30 - 3.20 10(3)/[facility] 09/11/2024 11:30 PM CDT [facility] ABSOLUTE MONOCYTES 0.53 0.20 - 1.00 10(3)/[facility] 09/11/2024 11:30 PM CDT [facility] ABSOLUTE EOSINOPHIL 0.27 0.00 - 0.40 10(3)/[facility] 09/11/2024 11:30 PM CDT [facility] ABSOLUTE BASOPHILS 0.04 0.00 - 0.10 10(3)/[facility] 09/11/2024 11:30 PM CDT [facility] NRBC PER 100 WBC 0 09/12/19 11:30 PM CDT [facility] Blood Venipuncture / Unknown 09/11/2024 11:13 PM CDT 09/11/2024 11:27 PM CDT us Ismael Stewart MD HEMATOLOGY ORDERABLES Fin al Result Performing Organization Address City/[facility]/ZIP Co de Phone Number [facility] [address] [place] [address] * Human Chorionic Gonadotropin Scrn Serum [id number] (09/11/2024 11:13 PM CDT) Only the most recent of2 resultswithin the time period is included. PREG-HCG Negative 09/11/2024 11:43 PM CDT [facility] Blood Venipuncture / Unknown 09/11/2024 11:13 PM CDT 09/11/2024 11:27 PM CDT Ismael Stewart MD CHEMISTRY ORDERABLES Rosi l Result [facility] [address] [place] [address] * Magnesium (09/11/2024 11:13 PM CDT) MAGNESIUM 1.8 1.6 - 2.6 mg/dL 09/11/2024 11:49 PM CDT [facility] Blood Venipuncture / Unknown 09/11/2024 11:13 PM CDT 09/11/2024 11:27 PM CDT us Ismael Stewart MD CHEMISTRY ORDERABLES Rosi l Result [facility] [address] [place] [address] * (ABNORMAL) CMP (09/11/2024 11:13 PM CDT) Only the most recent of2 resultswithin the time period is included. SODIUM 138 136 - 145 mmol/L 09/11/2024 11:49 PM CDT [facility] POTASSIUM 3.9 3.5 - 5.1 mmol/L 09/11/2024 11:49 PM CDT [facility] CHLORIDE 105 98 - 107 mmol/L 09/11/2024 11:49 PM CDT [facility] CO2, VENOUS 23 22 - 30 mmol/L 09/11/2024 11:49 PM CDT [facility] ANION GAP 13.9 <18.0 mmol/L 09/11/2024 11:49 PM CDT [facility] GLUCOSE 97 70 - 99 mg/dL 09/11/2024 11:49 PM CDT [facility] BUN 17 5 - 18 mg/dL 09/11/2024 11:49 PM CDT [facility] CREATININE, BLOOD 0.70 0.60 - 1.00 mg/dL 09/11/2024 11:49 PM CDT [facility] BUN/CREATININE RATIO 24(H) 12 - 20 ratio 09/11/2024 11:49 PM CDT [facility] TOTAL PROTEIN 7.0 6.0 - 8.0 g/dL 09/11/2024 11:49 PM CDT [facility] ALBUMIN 4.1 3.5 - 5.0 g/dL 09/11/2024 11:49 PM CDT [facility] A/G RATIO 1.4 1.0 - 2.2 09/11/2024 11:49 PM CDT [facility] CALCIUM 8.9 8.7 - 10.5 mg/dL 09/11/2024 11:49 PM CDT [facility] T BILI 0.3 0.2 - 1.2 mg/dL 09/11/2024 11:49 PM CDT [facility] SGOT (AST) 17 <43 U/L 09/11/2024 11:49 PM CDT [facility] SGPT (ALT) 27 <56 U/L 09/11/2024 11:49 PM CDT [facility] ALKALINE PHOSPHATASE 62 40 - 150 U/L 09/11/2024 11:49 PM CDT [facility] GFR, ESTIMATED >60 >=60 09/11/2024 11:49 PM CDT [facility] Comment: Creatinine Clearance is the preferred criteria for selecting drug dose adjustments in renally impaired patients. The GFR is provided as additional pertinent clinical information. GFR is reported in mL/min/1.73 sq m. Calculation based on the Chronic Kidney Disease Epidemiology Collaboration (CKD- EPI) equation refit without adjustment for race. GFR, EST. >60 >=60 025 11:49 PM CDT [facility] GFR, EST. NONAFRICAN >60 >=60 09/11/2024 11:49 PM CDT [facility] Blood Venipuncture / Unknown 09/11/2024 11:13 PM CDT 09/11/2024 11:27 PM CDT us Ismael Stewart MD CHEMISTRY ORDERABLES Rosi l Result [facility] [address] [place] [address] * XR CHEST SINGLE VIEW PORTABLE (09/04/2024 1:33 AM CDT) Anatomical Region Laterality Modality Chest N/A Computed Radiogr aphy 09/04/2024 1:51 AM CDT Impressions 09/04/2024 1:53 AM CDT IMPRESSION: No acute cardiopulmonary abnormality. Narrative 09/04/2024 1:53 AM CDT EXAM DESCRIPTION: XR CHEST SINGLE VIEW PORTABLE REASON FOR STUDY: Chest Pain TECHNIQUE: Single radiographic view of the chest. COMPARISON: Chest x-ray of June 14, 2024. FINDINGS: LUNGS/PLEURA: No focal consolidation or pneumothorax. No pleural effusion. There is no significant change as compared to previous study. HEART/MEDIASTINUM: Cardiac silhouette is normal. Remaining mediastinal silhouettes are unremarkable. HARDWARE/LINES/TUBES: None. BONES: No acute findings. THIS IS AN ELECTRONICALLY VERIFIED FINAL REPORT 09/04/2024 1:51 AM - Electronically signed by Dorota Doe M.D. SN: SN Report ID: [id number] Reading Location: [id number] Procedure Dorota Pablo MD - 09/04/2024 EXAM DESCRIPTION: XR CHEST SINGLE VIEW PORTABLE REASON FOR STUDY: Chest Pain TECHNIQUE: Single radiographic view of the chest. COMPARISON: Chest x-ray of June 14, 2024. FINDINGS: LUNGS/PLEURA: No focal consolidation or pneumothorax. No pleural effusion. There is no significant change as compared to previous study. HEART/MEDIASTINUM: Cardiac silhouette is normal. Remaining mediastinal silhouettes are unremarkable. HARDWARE/LINES/TUBES: None. BONES: No acute findings. THIS IS AN ELECTRONICALLY VERIFIED FINAL REPORT 09/04/2024 1:51 AM - Electronically signed by Dorota Doe M.D. SN: SN Report ID: [id number] Reading Location: [id number] IMPRESSION: No acute cardiopulmonary abnormality. Juwan Larson MD IMG DIAGNOSTIC ORDERABLES Final Result * TROPONIN I, HIGH SENSITIVITY (HSTRP) (09/04/2024 12:13 AM CDT) TROPONIN I, HIGH SENSITIVITY- HOLLIDAY <3 <=14 ng/L 09/04/2024 1:09 AM CDT [facility] Comment: High-sensitivity troponin I results are reported in ng/L making the result appear to be 1,000 times higher than the contemporary troponin I value which is reported in ng/ml. Results from [place]. Blood Venipuncture / Unknown 09/04/2024 12:13 AM CDT 09/04/2024 12:37 AM CDT Juwan Larson MD CHEMISTRY ORDERABLES Rosi l Result Performing Organization Address City/[facility]/ZIP Co de Phone Number [facility] [address] [place] [address] * Blue Top Tube (09/04/2024 12:13 AM CDT) Blood No Phlebotomy Charged / Unknown 09/04/2024 12:13 AM CDT 09/04/2024 12:37 AM CDT Juwan Larson MD HEMATOLOGY ORDERABLES Fin al Result Performing Organization Address City/[facility]/ZIP Co de Phone Number [facility] [address] [place] [address] * EKG 12 LEAD (09/03/2024 11:58 PM CDT) Ventricular Rate 70 BPM EXTERNAL EKG Atrial Rate 70 BPM EXTERNAL EKG P-R Interval 138 ms EXTERNAL EKG QRS Duration 86 ms EXTERNAL EKG Q-T Duration 400 ms EXTERNAL EKG QTC CALCULATION 432 ms EXTERNAL EKG P [place] 51 degrees EXTERNAL EKG R [place] 48 degrees EXTERNAL EKG T [place] 4 degrees EXTERNAL EKG 09/03/2024 11:5 8 PM CDT Impressions EXTERNAL EKG - 09/08/2024 10:07 AM CDT Normal sinus rhythm Cannot rule out Anterior infarct , age undetermined Abnormal ECG No previous ECGs available Confirmed by Lisa Mota ([id number]) on 09/08/2024 10:07:28 AM Narrative Procedure Note Lisa Mota DO - 09/08/2024 IMPRESSION: Normal sinus rhythm Cannot rule out Anterior infarct , age undetermined Abnormal ECG No previous ECGs available Confirmed by Lisa Mota ([id number]) on 09/08/2024 10:07:28 AM Juwan Larson MD IMG ECG ORDERABLES Final Result Performing Organization Address City/[facility]/ZIP Co de Phone Number EXTERNAL EKG * EKG SCAN (09/03/2024 12:00 AM CDT) 09/03/2024 us Provider Scan IMG ECG ORDERABLES Final Result Performing Organization Address City/[facility]/ZIP Co de Phone Number RESULTING AGENCY * (ABNORMAL) URINALYSIS REFLEX IF INDICATED BY ABNORMAL RESULTS (08/23/2024 10:34 PM CDT) SPECIFIC GRAVITY 1.010 1.003 - 1.030 08/23/2024 11:06 PM CDT [facility] URINE PH 7.0 5.0 - 9.0 08/23/2024 11:06 PM CDT [facility] WBC ESTERASE Negative Negative 08/23/2024 11:06 PM CDT [facility] NITRITE Negative Negative 08/23/2024 11:06 PM CDT [facility] PROTEIN, RANDOM URINE 15 mg/dL(A) Negative 08/23/2024 11:06 PM CDT [facility] URINE GLUCOSE, QUAL Negative Negative 08/23/2024 11:06 PM CDT [facility] URINE KETONES Negative Negative 08/23/2024 11:06 PM CDT [facility] UROBILINOGEN Normal Normal mg/dL 08/23/2024 11:06 PM CDT [facility] URINE BLOOD 250 /uL(A) Negative krista/ul 08/23/2024 11:06 PM CDT [facility] URINALYSIS COLOR Yellow 08/23/2024 11:06 PM CDT [facility] URINALYSIS CLARITY Slightly Cloudy 08/23/2024 11:06 PM CDT [facility] WBC (Urine) 0-5 Negative, 0-5 /hpf 08/23/2024 11:06 PM CDT [facility] URINE RBC'S Packed(A) Negative, 0-2 /hpf 08/23/2024 11:06 PM CDT [facility] EPITHELIAL CELLS Occasional /lpf 08/23/2024 11:06 PM CDT [facility] BACTERIA, URINE Few(A) Negative /hpf 08/23/2024 11:06 PM CDT [facility] Urine URINE SPECIMEN OBTAINED BY CLEAN CATCH PROCEDURE / Unknown Non-Phlebotomy Collection / Unknown 08/23/2024 10:34 PM CDT 08/23/2024 10:42 PM CDT us Juwan Larson MD URINE ORDERABLES Final Re sult [facility] [address] [place] [address] * DAQUAN SCREENING BILATERAL DIGITAL W CAD W LUCIO (03/25/2024 1:33 PM HIDE AND SKIN CLASSER) Anatomical Region Laterality Modality breast Bilateral Mammography 03/25/2024 1:30 PM HIDE AND SKIN CLASSER Narrative 03/26/2024 10:24 AM HIDE AND SKIN CLASSER - DAQUAN SCREENING BILATERAL DIGITAL W CAD W LUCIO BILATERAL DIGITAL SCREENING MAMMOGRAM 3D/2D WITH CAD WITH MEDIOLATERAL OBLIQUE CRANIOCAUDAL: 03/25/2024 The study was acquired using digital technology and interpreted from soft copy. Current study was also evaluated with ICAD version 7.2. 2D digital mammographic views, as well as 3D digital tomosynthesis were performed in the CC and MLO projections. CLINICAL: Routine screening. Patient has no complaints. Patient has gained 42 pounds last year. No personal history of cancer. No family history of breast cancer. COMPARISONS: Comparison is made to exams dated: 02/05/2023, 12/20/2021, and 01/03/2021 [facility]. BREAST TISSUE:There are scattered areas of fibroglandular density. FINDINGS: No significant masses, calcifications, or other findings are seen in either breast. There has been no significant interval change. IMPRESSION: NEGATIVE There is no mammographic evidence of malignancy. A 1 year screening mammogram is recommended. A letter will be sent to the patient with these results. The patient will be entered into a reminder system with a target due date of 1 year for her next screening exam. Electronically signed by: Angela monroy/bc:03/25/2024 22:26:51 Cloth Pattern Maker(s): RT Arianne(R)(M), [facility] letter sent: Normal Exam Reading location: [facility] Mammogram BI-RADS: Category 1: Negative Procedure Note Angela Marie MD - 03/26/2024 - DAQUAN SCREENING BILATERAL DIGITAL W CAD W LUCIO BILATERAL DIGITAL SCREENING MAMMOGRAM 3D/2D WITH CAD WITH MEDIOLATERAL OBLIQUE CRANIOCAUDAL: 03/25/2024 The study was acquired using digital technology and interpreted from soft copy. Current study was also evaluated with ICAD version 7.2. 2D digital mammographic views, as well as 3D digital tomosynthesis were performed in the CC and MLO projections. CLINICAL: Routine screening. Patient has no complaints. Patient has gained 42 pounds last year. No personal history of cancer. No family history of breast cancer. COMPARISONS: Comparison is made to exams dated: 02/05/2023, 12/20/2021, and 01/03/2021 [facility]. BREAST TISSUE:There are scattered areas of fibroglandular density. FINDINGS: No significant masses, calcifications, or other findings are seen in either breast. There has been no significant interval change. IMPRESSION: NEGATIVE There is no mammographic evidence of malignancy. A 1 year screening mammogram is recommended. A letter will be sent to the patient with these results. The patient will be entered into a reminder system with a target due date of 1 year for her next screening exam. Electronically signed by: Angela monroy/bc:03/25/2024 22:26:51 Cloth Pattern Maker(s): RT Arianne(R)(M), [facility] letter sent: Normal Exam Reading location: [place] Mammogram BI-RADS: Category 1: Negative us Kimberly Gannon APRN, CNP IMYadiel MAMMO ORDERABLES Final Result from Last 3 Months or Most Recently Relevant to Health Maintenance Insurance MEDICAID [place] Member Subscriber Plan / Payer (Ef fective 2019-Present) Name:Danielle Og Relation to Subscriber:Self Name:Danielle Og Payer ID:[id number] (NAIC) Type:Not on file Address: [place] [id number] MEDICAID RAI Care Teams Stone Rubber Relationship Specialty Start Date End Date Donato, CRISTAL Coleman CNP [address] [place] [phone] (Work) PCP - General Family Medicine 11/30/15 Rowan Cruz APRN, FORMULA ROOM WORKER [address] [facility] [address], [facility] [address] [place] [address] Nurse Practitioner Cardiology 08/19/23 Isabel Pepe MD [address], [facility] [address] [place] [address] Consulting Physician Urology 12/27/23 Luis Miguel Naranjo MD [address] [place] [address] Consulting Physician Obstetrics & Gynecology 02/05/24 Luis Miguel Naranjo MD [address] [place] [address] Consulting Physician Obstetrics & Gynecology 03/13/24
--- OUTSIDE RECORDS SUMMARY | 2024-09-30 10:07 | XMS_ITS | CONTINUITY OF CARE DOCUMENT ---
Author Name ritu jennifertg Address Unknown Organization [facility] Address [address] [place] [address] Phone [phone] Care Team Providers Care Vice President Planning Name Role Phone Ras Milton MD Unavailable [phone] AKINS JEWELRY ENGRAVER-C, MARCELA Unavailable [phone] AKINS JEWELRY ENGRAVER-C, MARCELA Unavailable PROBLEMS Condition Status Date Provider Notes Right ventricular dilatation active aRs Milton MD Smoker active Ras Milton MD Dyspnea on exertion active Ras Argueta Abnormal EKG active Ras Milton MD Chest pain active Ras Milton MD Anxiety active Ras Mliton MD Snoring, no YENNIFER active Ras Milton MD ENCOUNTERS Date Type Provider Location Encounter Diag nosis - In-person encounter Office Visit Ras Milton MD [place] [facility] - In-person encounter Office Visit Ras Milton MD [place] [facility] - In-person encounter Office Visit Ras Milton MD [place] Snoring, no YENNIFER - In-person encounter Office Visit Ras Milton MD [facility] Office - In-person encounter Office Visit Ras Milton MD [place] [facility] - In-person encounter Office Visit Ras Milton MD [place] [facility] Right ventricular dilatationSmokerDyspnea on exertionAbnormal EKGChest painAnxietySnoring, no YENNIFER VITAL SIGNS Date Observation Value Provider blood pressure, diastolic 79 mm[Hg] Li nkLogic blood pressure, systolic 106 mm[Hg] Vianca kLogic Body Mass Index (Ratio) 23.96 kg/m2 Will Milton MD blood pressure, cuff size large Ta kourtney Bodfish blood pressure, diastolic 79 mm[Hg] [facility] blood pressure, systolic 106 mm[Hg] [facility] oxygen saturation, oximetry 97 % [facility] respiratory rate E&M 14 /min [facility] pulse rate 72 /min [facility] weight E&M 131.0 [lb_av] [facility] height E&M 62 [in_i] [facility] Body Mass Index (Ratio) 27.25 kg/m2 Trac dino Lively blood pressure, diastolic 84 mm[Hg] Ma rsha O'Patrick blood pressure, systolic 122 mm[Hg] Mar chary O'Patrick oxygen saturation, oximetry 97 % Brianna O'Patrick respiratory rate E&M 16 /min Brianna O'Patrick pulse rate 55 /min Brianna O'Patrick blood pressure, resting Yes [place] flores O'Patrick weight E&M 149 [lb_av] Brianna [...] % Berenice Meera pulse rate 97 /min Berenice Meera weight E&M 144 [lb_av] Berenice Meera [...] mg/dL LinkLogic 65-99 platelet count 297 X10E3/UL [facility] [phone]/03/20 red blood cell distribution width 12.2 % [...] Payer name Policy type / Coverage type [place] red democrat [place] RAI MEDICAID Medicaid [id number] ADVANCE DIRECTIVES Name Date DISCUSSED - NO DECISION MADE TREATMENT PLAN Date Name Performer [id number],S, Ras Cardoza ra, [place] [id number],S, Ras Cardoza ra, [place] [id number],S, Ras Cardoza ra, MD [id number],S, Ras Cardoza ra, MD [id number],S, Ras Cardoza ra, MD [id number],S, Ras Cardoza ra, MD [id number],B, Ras Cardoza ra, MD [id number],S, Ras Cardoza ra, MD [id number],S, Ras Cardoza ra, MD [id number],B, Ras Cardoza ra, MD Cardiology Ras Argueta [...] Home Stress Exercise Card iolite DLCO - 17495 FRC - 99711 FVC - 06827 HISTORY OF PROCEDURES Procedure Date Procedure Name Provider Procedure Notes S tatus EKG Ras Milton MD complet ed Cardiolite, 2 units Ras Milton MD completed SPECT Images Ras Milton MD compl eted Stress EKG Ras Milton MD complet ed EKG Ras Milton MD complet ed FVC / MVV with bronchodilator - 15789 Ras Milton MD completed FRC - 07950 Ras Milton MD comple matt SpO2 w/o 6min walk/titration Ras Milton MD completed DLCO - 07612 aRs Milton MD compl eted EKG Ras Milton MD complet ed
== END 2024-09-30 09:53 | disposition home or self-care (01) ==
PROVIDERS: Emergency Provider Nurse Practitioner Family; PCP Nurse Practitioner Family
DX: J03.90 Acute tonsillitis, unspecified (principal); F17.210 Nicotine dependence, cigarettes, uncomplicated; J45.909 Unspecified asthma, uncomplicated
CPT/HCPCS: 87081; 87880; 99213; G0463

== ENCOUNTER 2024-10-12 13:29 | Emergency (ER) | payer OTHER, SELFPAY ==
[2024-10-12 13:32] VITALS: BP 130/93; PULSE 79; RESP 20; TEMP 36.7; O2SAT 98
--- NOTE | 2024-10-12 13:44 | ED.BACK ---
HPI - Back Pain/Injury General Chief Complaint: Back Pain/Injury Stated Complaint: shoulders causing pain Time Seen by Provider: 10/12/24 13:45 Source: patient and RN notes reviewed Mode of arrival: ambulatory Limitations: no limitations History of Present Illness HPI Narrative: 49-year-old female presents with concern for tight, painful shoulders. She reports she has dealt with this pain chronically, she has been in physical therapy for it. She reports she is having a flare-up. She denies any decreased strength, sensation, range of motion in the upper extremities or neck. Denies neck pain. She denies taking any medication for her symptoms. She missed work today due to the pain MD elicited complaint: back pain Related Data Home Medications ?Medication ?Instructions ?Recorded ?Confirmed ?Last Taken ?Type albuterol sulfate 90 mcg/actuation inhalation 09/30/24 Unknown History aerosol inhaler azelastine 137 mcg (0.1 %) nasal intranasal 09/30/24 Unknown History spray budesonide-formoterol HFA 80 inhalation 09/30/24 Unknown History mcg-4.5 mcg/actuation aerosol inhaler (Symbicort) fexofenadine 180 mg tablet mg 09/30/24 Unknown History (Allergy Relief (fexofenadine)) nicotine 7 mg/24 hr daily 09/30/24 Unknown History transdermal patch pantoprazole 40 mg tablet,delayed mg PO 09/30/24 Unknown History release atorvastatin 20 mg tablet mg 10/12/24 Unknown History Allergies Allergy/AdvReac Type Severity Reaction Status Date / Time No Known Allergies Allergy Verified 09/30/24 09:37 Review of Systems Review of Systems: CONSTITUTIONAL: Denies malaise, chills, sweats, or fever. CARDIOVASCULAR: Denies chest pain, palpitations, or edema. RESPIRATORY: Denies cough or dyspnea. GASTROINTESTINAL: Denies abdominal pain, nausea, vomiting, diarrhea, loss of bowel function GENITOURINARY: Denies dysuria, hematuria, frequency, loss of bladder function. SKIN: Denies rash or itching. MUSCULOSKELETAL: Reports bilateral shoulder pain and tightness NEUROLOGIC: Denies numbness, weakness, or headache. All systems reviewed & are unremarkable except as noted in HPI and below PMFSH Past Medical History Medical History (Updated 10/12/24 @ 13:52 by Monse Glover NP) Asthma Surgical History Surgical History (Updated 10/28/21 @ 08:05 by Isak UriosteguiMD) History of bilateral tubal ligation Family History Family History Other Heart disease Throat cancer Social History Social History Smoking packs per day: 0.5 Smoking cigarettes per day: 10.0 Smoking status: Current every day smoker Alcohol intake: current Comments At time of signature, agree with nursing past medical, surgical, social and family history. There is no relevant family history pertinent to the presenting complaint Exam Narrative: GENERAL: Well-appearing, well-nourished, and in no acute distress. HEAD: Normocephalic, atraumatic. EYES: PERRLA and EOMI. NECK: Supple. No lymphadenopathy. CHEST: Clear to auscultation. No respiratory distress. HEART: Regular rate and rhythm. Distal pulses palpable and equal, cap refill <3 seconds ABDOMEN: Soft, nontender, nondistended, normal active bowel sounds, no palpable or pulsatile masses. No CVA tenderness MUSCULOSKELETAL: Normal range of motion and strength in all extremities; grossly Normal sensation. Transfers from sitting to standing. SKIN: Warm, dry, no rash. No ecchymosis, erythema, open wounds NEURO: No focal deficits. Alert and oriented x3. Normal gait. PSYCH: Normal mood and affect Course Course Emergency Course: Patient is aware of diagnosis, understands and agrees to treatment plan. Anticipatory guidance given. Patient agrees to follow-up as directed and is aware of reasons to seek care at the emergency department. Portions of this record may have been created with voice recognition software Level of Care: Express Care Visit Vital Signs Vital signs: Vital Signs Temperature 98.0 F 10/12/24 13:32 Pulse Rate 79 10/12/24 13:32 Respiratory Rate 20 10/12/24 13:32 Blood Pressure 130/93 H 10/12/24 13:32 Pulse Oximetry 98 10/12/24 13:32 Oxygen Delivery Room Air 10/12/24 13:32 Temperature 98.0 F 10/12/24 13:32 Pulse Rate 79 10/12/24 13:32 Respiratory Rate 20 10/12/24 13:32 Blood Pressure 130/93 H 10/12/24 13:32 Pulse Oximetry 98 10/12/24 13:32 Oxygen Delivery Room Air 10/12/24 13:32 Reviewed. MDM - Back Pain/Injury MDM Narrative Medical decision making narrative: I evaluated this in the express care. History is obtained from patient who is an independent historian and physical exam was performed.? Available medical records were reviewed. ? Exam findings and relevant testing show no acute concerns or changes; patient is non-toxic appearing and is in no distress. No risk factors or findings concerning for epidural abscess, diskitis, vertebral osteomyelitis, cord compression, cauda equina, vertebral fracture or bone malignancy, AAA, or pyelonephritis. Patient instructed to consider further imaging and workup through their primary care physician as an outpatient if symptoms persist. ? Differential diagnosis and treatment plan were discussed with the patient. Patient agrees with discussion and after shared medical decision making agrees with plan of care. All questions were answered to the patient's satisfaction. Patient is appropriate for outpatient treatment and follow-up. Critical Care Time Critical Care Time Critical Care Time: No Discharge Plan Discharge Clinical Impression: Bilateral shoulder pain Patient Disposition: Home Condition: Stable Instructions: Ice Pack Application (ED) Additional Instructions: Please follow up with your Primary Care Doctor within 48-72 hours - call for an appointment. Activity as tolerated. Take Motrin 800mg every 6-8 hours with food for the next 2-3 days, take muscle relaxers every 8 hours as needed for muscle spasm- do not drive or make any important decisions while on this medication for it can make you drowsy. You may apply ice to the area as needed. If you experience any worsening pain, swelling, numbness, weakness please go to ER. Patient Language: South Korean Prescriptions: New cyclobenzaprine 10 mg tablet 10 mg PO TID PRN (Reason: muscle spasm) Qty: 20 0RF ibuprofen 800 mg tablet 800 mg PO Q6H PRN (Reason: pain) Qty: 30 0RF No Action fexofenadine [Allergy Relief (fexofenadine)] 180 mg tablet pantoprazole 40 mg tablet,delayed release (DR/EC) PO azelastine 137 mcg (0.1 %) spray,non-aerosol INTRANASAL albuterol sulfate 90 mcg/actuation HFA aerosol inhaler INHALATION nicotine 7 mg/24 hr patch 24 hour budesonide-formoterol [Symbicort] 80-4.5 mcg/actuation HFA aerosol inhaler INHALATION atorvastatin 20 mg tablet clopidogrel 75 mg tablet Follow-up/Referrals: Donato,Virginia Richardson APN [Primary Care Provider] - Stand Alone Forms: Work/School Release IP Time of Disposition: 13:56
== END 2024-10-12 14:06 | disposition home or self-care (01) ==
PROVIDERS: Emergency Provider Nurse Practitioner; PCP Nurse Practitioner Family
DX: M25.512 Pain in left shoulder (principal); M25.511 Pain in right shoulder; F17.210 Nicotine dependence, cigarettes, uncomplicated; J45.909 Unspecified asthma, uncomplicated
CPT/HCPCS: 99213; G0463

== ENCOUNTER 2025-03-24 17:43 | Emergency (ER) | payer OTHER, SELFPAY ==
[2025-03-24 17:47] VITALS: BP 123/62; PULSE 64; RESP 16; TEMP 36.6; O2SAT 99
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
--- OUTSIDE RECORDS SUMMARY | 2025-03-24 17:47 | XMS_ITS | Encounter Summary ---
Author Organization [facility] Address [address] [place] [address] Phone Care Team Providers Care Videotape Operator Name Role Phone Virginia Donato APRN, FISH NET STRINGER Primary Care Provider [phone] Rowan Cruz APRN, FISH NET STRINGER Unavailable + [phone] Isabel Pepe MD Unavailable [phone] Luis Miguel Naranjo MD Unavailable [phone] Luis Miguel Naranjo MD Unavailable [phone] Ritika Coroenl APRN, [facility] Unavailable + [phone] Reason for Referral * PT/OT/ST (Routine) - Authorized Specialty Diagnoses / Procedures Referred By Contmadan t Referred To Contact Physical Therapy Diagnoses Radiculopathy, lumbar region Other dorsalgia Pain in left shoulder Kaykay Fairchild, TRAV[address] [place] [address] Phone: tel: fax: [facility] [address] [address] Phone: tel: fax: Referral ID Status Reason Start Date Expiration Date V isits Requested Visits Authorized [id number] Authorized 05/29/2024 50 12 Scheduling Instructions UATION MANAGER Encounter Details Date Type Department Care Team (Latest Contact Info) Description 05/29/2024 Transcribe Orders [facility] [address] [place] [address] Kaykay Fairchild PAC [address] [place] [address] Radiculopathy, lumbar region (Primary Dx); Other dorsalgia [...] PM CDT Legal Sex Female 3:26 AM EVALUATION MANAGER Gender Identity Female 12/11/2022 9:35 PM CDT Sexual Orientation Straight 01/11/2025 3: 53 PM CDT documented as of this encounter Plan of Treatment Upcoming Encounters Date Type Department Care Team (Late st Contact Info) Description 04/26/2025 8:30 AM EVALUATION MANAGER [facility] [address] [place] [address] Ritika Coronel APRN, POLE INCISOR OPERATOR [address] [place] [address] 05/18/2025 2:00 PM EVALUATION MANAGER Office Visit [facility] - Obstetrics & Gynecology [facility] [address] [place] [address] Luis Miguel Naranjo MD [address] [place] [address] Scheduled Referrals Name Type Priority Associated Diagnoses Orde r Schedule PHYSICAL THERAPY REFERRAL Outpatient Referral Routine Radiculopathy, lumbar region Other dorsalgia Expected: 05/29/2024, Expires: 05/29/2025 documented as of this encounter Visit Diagnoses Diagnosis Radiculopathy, lumbar region- Primary Thoracic or lumbosacral neuritis or radiculitis, unspecified Other dorsalgia documented in this encounter Care Teams Videotape Operator Relationship Specialty Start Date End Date Virginia Donato APRN, FISH NET STRINGER PCP - General Family Medicine 11/30/15 Rowan Cruz, FIELD CHECKER, FISH NET STRINGER [address]2 [facility] BRIANNANikolas [facility], [facility] [address] [place] [address] Nurse Practitioner Cardiology 08/19/23 11/04/24 Isabel Pepe MD [address] [facility], [facility] [address] [place] [address] Consulting Physician Urology 12/27/23 Luis Miguel Naranjo MD [address] [place] [address] Consulting Physician Obstetrics & Gynecology 02/05/24 Luis Miguel Naranjo MD [address] [place] [address] Consulting Physician Obstetrics & Gynecology 03/13/24 Ritika Coronel, FIELD CHECKER, POLE INCISOR OPERATOR [address] [place] [address] Nurse Practitioner Advanced Practice Nurse 12/01/24 documented as of this encounter
--- OUTSIDE RECORDS SUMMARY | 2025-03-24 17:47 | XMS_ITS | Encounter Summary ---
Author Organization [facility] Address [address] [place] [address] Phone Care Team Providers Care Fabric Sourcer Name Role Phone Virginia Donato APRN, AED TRAINER Primary Care Provider [phone] Rowan Cruz APRN, AED TRAINER Unavailable + [phone] Isabel Pepe MD Unavailable [phone] Luis Miguel Naranjo MD Unavailable [phone] Luis Miguel Naranjo MD Unavailable [phone] Ritika Coronel APRN, [facility] Unavailable + [phone] Encounter Details Date Type Department Care Team (Late st Contact Info) Description 12/12/2022 Transcribe Orders [facility] Admitting [address] [place] [id number] Juwan Larson MD [address] [place] [address] Right calf pain (Primary Dx) Social History Tobacco Use Types Packs/Day Years Used Date Smoking Tobacco: Every Day Cigarettes Smokeless Tobacco: Never Alcohol Use Standard Drinks/Week Comments No 0 (1 standard drink = 0.6 oz pur e alcohol) Comments No Sex and Gender Information Value Date Recorded Sex Assigned at Female 12/11/2022 9:35 PM CDT Legal Sex Female 3:26 AM GWOT IA/ILO INTELLIGENCE SUPPORT Gender Identity Female 12/11/2022 9:35 PM CDT Sexual Orientation Straight 01/11/2025 3: 53 PM CDT COVID-19 Exposure Response Date Recorded In the last 10 days, have suellen u been in contact with someone who was confirmed or suspected to have Coronavirus/COVID-19? No / Unsure 12/11/2022 9:31 PM CDT documented as of this encounter Plan of Treatment Upcoming Encounters Date Type Department Care Team (Late st Contact Info) Description 04/26/2025 8:30 AM GWOT IA/ILO INTELLIGENCE SUPPORT Office Visit [facility] Neurology [facility] [address] [place] [address] Ritika Coronel APRN, BUSINESS QUALITY ASSURANCE ANALYST [address] [place] [address] 05/18/2025 2:00 PM GWOT IA/ILO INTELLIGENCE SUPPORT Office Visit [facility] Medical [facility] - Obstetrics & Gynecology [facility] [address] [place] [address] Luis Miguel Naranjo MD [address] [place] [address] documented as of this encounter Results * (ABNORMAL) D-DIMER (12/12/2022 8:29 AM CDT) D DIMER 0.72(H) <0.50 mcg/mL FEU 12/12/2022 8:58 AM CDT [facility] Blood Venipuncture / Unknown 12/12/2022 8:29 AM CDT 12/12/2022 8:39 AM CDT Narrative [facility] - 12/12/2022 8:58 AM CDT The FDA has approved this method to exclude the diagnosis of DVT and/or PE at the cutoff value of <0.50 mcg/mL FEU. us Juwan Larson MD HEMATOLOGY ORDERABLES Fin al Result [facility] [address] [place] [address] documented in this encounter Visit Diagnoses Diagnosis Right calf pain- Primary documented in this encounter Additional Health Concerns Infection Onset Date Last Indicated Resolved Time COVID - 19 04/08/2023 04/08/2023 04/18/2023 12:1 6 AM GWOT IA/ILO INTELLIGENCE SUPPORT COVID - 19 06/06/2023 06/06/2023 06/06/2023 11:4 7 AM GWOT IA/ILO INTELLIGENCE SUPPORT COVID - 19 Confirmed 06/06/2023 06/06/2023 024 12:16 AM GWOT IA/ILO INTELLIGENCE SUPPORT documented as of this encounter Care Teams Fabric Sourcer Relationship Specialty Start Date End Date Virginia Donato APRN, AED TRAINER PCP - General Family Medicine 11/30/15 Rowan Cruz APRN, AED TRAINER [address] [facility] [place] [address] [place] [address] Nurse Practitioner Cardiology 08/19/23 11/04/24 Isabel Pepe MD #2 [facility] [address] [place] [address] Consulting Physician Urology 12/27/23 Luis Miguel Naranjo MD [address] [place] [address] Consulting Physician Obstetrics & Gynecology 02/05/24 Luis Miguel Naranjo MD [address] [place] [address] Consulting Physician Obstetrics & Gynecology 03/13/24 Ritika Coronel APRN, BUSINESS QUALITY ASSURANCE ANALYST [address] [place] [address] Nurse Practitioner Advanced Practice Nurse 12/01/24 documented as of this encounter
--- OUTSIDE RECORDS SUMMARY | 2025-03-24 17:47 | XMS_ITS | Encounter Summary ---
Author Organization [facility] Address [address] [place] [address] Phone Care Team Providers Care Pipe Caulker Name Role Phone Kinga, Virginia BEE, [facility] Primary Care Provider [phone] Isabel Pepe MD Unavailable [phone] Luis Miguel Naranjo MD Unavailable [phone] Luis Miguel Naranjo MD Unavailable [phone] Ritika Coronel APRN, [facility] Unavailable + [phone] Encounter Details Date Type Department Care Team (Late st Contact Info) Description 03/04/2025 Transcribe Orders [facility] [address] [place] [address] Luis Miguel Naranjo MD [address] [place] [id number] Social History Tobacco Use Types Packs/Day Years Used Date Smoking Tobacco: Every Day Cigarettes Smokeless Tobacco: Never Alcohol Use Standard Drinks/Week Comments No 0 (1 standard drink = 0.6 oz pur e alcohol) Sexually Active Control Partners Comments Not Currently Comments No Sex and Gender Information Value Date Recorded Sex Assigned at Female 12/11/2022 9:35 PM CDT Legal Sex Female 3: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 Gender Identity Female 12/11/2022 9:35 PM CDT Sexual Orientation Straight 01/11/2025 3: 53 PM CDT documented as of this encounter Plan of Treatment Upcoming Encounters Date Type Department Care Team (Late st Contact Info) Description 04/26/2025 8:30 AM 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 [facility] [address] [place] [address] Ritika Coronel APRN, HINGING MACHINE OPERATOR [address] [place] [address] 05/18/2025 2:00 PM 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 Office Visit [facility] - Obstetrics & Gynecology [facility] [address] [place] [address] Luis Miguel Naranjo MD [address] [place] [address] documented as of this encounter Visit Diagnoses Not on filedocumented in this encounter Care Teams Pipe Caulker Relationship Specialty Start Date End Date Virginia Donato APRN, CATTLE AND WHEAT FARMER PCP - General Family Medicine 11/30/15 Isabel Pepe MD [address] [address] Consulting Physician Urology 12/27/23 Luis Miguel Naranjo MD [address] [place] [address] Consulting Physician Obstetrics & Gynecology 02/05/24 Luis Miguel Naranjo MD [address] [place] [address] Consulting Physician Obstetrics & Gynecology 03/13/24 Ritika Coronel APRN, HINGING MACHINE OPERATOR [address] [place] [address] Nurse Practitioner Advanced Practice Nurse 12/01/24 documented as of this encounter
--- OUTSIDE RECORDS SUMMARY | 2025-03-24 17:47 | XMS_ITS | Clinical Summary ---
Author Organization [facility] Address [address] [place] [address] Phone Care Team Providers Care Assistant Corporate Secretary Name Role Phone [place], [place] BEE, [facility] Primary Care Provider [phone] Isabel Pepe MD Unavailable [phone] Luis Miguel Naranjo MD Unavailable [phone] Luis Miguel Naranjo MD Unavailable [phone] Ritika Coronel APRN, JAVA GOLDEN GATE DEVELOPER Unavailable + [phone] Allergies Active Allergy Reactions Criticality Noted Date Comments Adhesive Tape Rash 06/05/2017 Medications aspirin 81 MG Chewable Tablet Take 81 mg by mouth daily. Active albuterol 108 (90 Base) MCG/ACT Aerosol Solution take 2 Puffs by inhalation. 01/12/2024 Active pantoprazole (PROTONIX) 40 MG Tablet Delayed Response Take 40 mg by mouth daily. 03/02/2024 Active fexofenadine (TREY) 180 MG Tablet Take 180 mg by mouth daily. 03/02/2024 Active atorvastatin (LIPITOR) 20 MG Tablet Take 20 mg by mouth daily. 10/05/2024 Active Active Problems Problem Noted Date Diagnosed Date Anxiety state Arthropathy Cough Constipation Neoplasm Encounters Date Type Department Care Team Description 03/04/2025 Transcribe Orders [facility] [address] [place] [address] [place] [address] Luis Miguel Naranjo MD 02/08/2025 3:42 PM CDT - 02/08/2025 11:59 PM CDT Hospital Encounter [facility] [address] [place] [address] Ritika Coronel, DOCKING SAW OPERATOR, JAVA GOLDEN GATE DEVELOPER Discharge Disposition: Discharged to home or Selfcare 02/06/2025 Travel 01/27/2025 9:02 AM CDT - 01/27/2025 11:59 PM CDT Hospital Encounter [facility] Diagnostic Radiology [address] [place] [address] Ritika Coronel, DOCKING SAW OPERATOR, JAVA GOLDEN GATE DEVELOPER Discharge Disposition: Discharged to home or Selfcare 01/27/2025 8:21 AM CDT - 01/27/2025 9:01 AM CDT Hospital Encounter [facility] MRI [address] [place] [address] Ritika Coronel, DOCKING SAW OPERATOR, JAVA GOLDEN GATE DEVELOPER Discharge Disposition: Discharged to home or Selfcare 01/27/2025 Travel 01/25/2025 Travel 01/18/2025 Travel 01/11/2025 Results Follow-Up [facility] - Neurology [facility] [address] [place] [address] Ritika Coronel APRN, JAVA GOLDEN GATE DEVELOPER MRI BRAIN W/O CONTRAST 01/08/2025 11:01 PM CDT - 01/09/2025 1:24 AM CDT Emergency [facility] Emergency [address] [place] [address] Juwan Larson MD Chest wall pain Discharge Disposition: Discharged to home or Selfcare 01/08/2025 Travel from Last 3 Months Immunizations Immunization Administration Dates Next Due Covid-19, Mrna, Lnp-s, Pf, 3 0 Mcg/0.3 Ml Dose (komoot) 01/17/2021 TDAP Vaccine 02/23/2015,11/04/2012,04/22/2012 Social History Tobacco Use Types Packs/Day Years Used Date Smoking Tobacco: Every Day Cigarettes Smokeless Tobacco: Never Tobacco Cessation:Ready to Q uit: No; Counseling Given: Yes Alcohol Use Standard Drinks/Week Comments No 0 (1 standard drink = 0.6 oz pur e alcohol) Sexually Active Control Partners Comments Not Currently Comments No Sex and Gender Information Value Date Recorded Sex Assigned at Female 12/11/2022 9:35 PM CDT Legal Sex Female 3:26 AM INFORMATION WRITER Gender Identity Female 12/11/2022 9:35 PM CDT Sexual Orientation Straight 01/11/2025 3: 53 PM CDT Last Filed Vital Signs Vital Sign Reading Time Taken Comments Blood Pressure 124/78 01/09/2025 1:15 AM CDT Pulse 57 01/09/2025 1:15 AM CDT Temperature 36.4 C (97.5 F) 01/08/2025 10:59 PM CDT Respiratory Rate 16 01/09/2025 1:15 AM CDT Oxygen Saturation 100% 01/09/2025 1:15 AM CDT Inhaled Oxygen Concentration - - Weight 77.1 kg (170 lb) 01/08/2025 10:59 PM CDT Height 157.5 cm (5' 2) 01/08/2025 10:59 PM CDT Body Mass Index 31.09 01/08/2025 10:59 PM CDT Plan of Treatment Upcoming Encounters Date Type Department Care Team (Late st Contact Info) Description 04/26/2025 8:30 AM INFORMATION WRITER Office Visit [facility] - Neurology [facility] [address] [place] [address] Ritika Coronel APRN, JAVA GOLDEN GATE DEVELOPER [address] [place] [address] 05/18/2025 2:00 PM INFORMATION WRITER Office Visit [facility] - Obstetrics & Gynecology [facility] [address] [place] [address] Luis Miguel Naranjo MD [address] [place] [address] Health Maintenance Due Date Last Done Comments Hepatitis C Virus (HCV) Screening 1975 Hepatitis B Immunization (1 of 3 - 19+ 3-dose series) 1996 Pneumococcal Immunization Combined (1 of 2 - PCV) 1996 Pap Smear 1998 Cervical Cancer Screening (CCS) 2007 HPV/Cotest 2007 Cologuard 2022 Colonoscopy 2022 Colorectal Cancer Screening 2022 Immunochemical Fecal Occult Blood 2022 Influenza Immunization (#1) 2024 SARS-COV-2 Immunization ( season) 2024 08/14/2021, 02/08/2021, 01/17/2021 Mammogram 03/25/2025 03/25/2024, 01/20, 12/20/2021, Additional history exists Td Immunization Every 10 Years (Adults With 1 Tdap) 10/15/2034 10/15/2024, 02/23/2015, 11/04/2012, Additional history exists Respiratory Syncytial Virus (RSV) Immunization (Adult) (1 - 1-dose 75+ series) 2052 Discussion re Starting/Frequency of Mammograms Completed 03/25/2024, 02/05/2023, 12/20/2021, Additional history exists DTaP/Tdap/Td Immunization Discontinued 2024, 02/23/2015, 11/04/2012, Additional history exists TdaP Immunization Discontinued 10/15/2024, , 11/04/2012, Additional history exists Human Papillomavirus (HPV) Immunization Aged Out No longer eligible based on patient's age to complete this topic Meningococcal Immunization (ACWY) Aged Out No longer eligible based on patient's age to complete this topic Rotavirus Immunization Aged Out No lo nger eligible based on patient's age to complete this topic Procedures Procedure Name Priority Date/Time Associated Diagnosis Comments ADULT TRANS THORACIC ECHO 2D COMPLETE Routine 02/08/2025 4:25 PM CDT Focal neurological deficit XR CERVICAL SPINE INCLUDING FLEXION AND EXTENSION (6V OR MORE) Routine 01/27/2025 9:18 AM CDT Right arm numbness Abnormal finding on MRI of brain Focal neurological deficit MRI C-SPINE W/O CONTRAST Routine 01/27/2025 9:00 AM CDT Right arm numbness Abnormal finding on MRI of brain Focal neurological deficit CBC WITH AUTO DIFFERENTIAL Routine 01/27/2025 8:26 AM CDT Focal neurological deficit Obstructive chronic bronchitis without exacerbation IGE, IMMUNOGLOBULIN E TOTAL Routine 01/27/2025 8:26 AM CDT Focal neurological deficit Obstructive chronic bronchitis without exacerbation COMPLETE BLOOD COUNT (CBC) WITH DIFF Routine 01/27/2025 8:26 AM CDT Focal neurological deficit Obstructive chronic bronchitis without exacerbation RHYTHM STRIP 01/09/2025 12:00 AM CDT XR CHEST SINGLE VIEW PORTABLE STAT 01/08/2025 11:17 PM CDT MANUAL DIFFERENTIAL STAT 01/08/2025 1 1:15 PM CDT CBC WITH AUTO DIFFERENTIAL STAT 01/08/2025 11:15 PM CDT TROPONIN I, HIGH SENSITIVITY (HSTRP) STAT 01/08/2025 11:15 PM CDT CMP (COMPREHENSIVE METABOLIC PANEL) STAT 01/08/2025 11:15 PM CDT COMPLETE BLOOD COUNT (CBC) WITH DIFF STAT 01/08/2025 11:15 PM CDT EKG 12 LEAD STAT 01/08/2025 11:04 PM CDT EKG SCAN 01/08/2025 12:00 AM CDT DAQUAN SCREENING BILATERAL DIGITAL W CAD W LUCIO Routine 03/25/2024 1:33 PM INFORMATION WRITER Encounter for screening mammogram for malignant neoplasm of breast from Last 3 Months or Most Recently Relevant to Health Maintenance Results * ADULT TRANS THORACIC ECHO 2D COMPLETE (02/08/2025 4:25 PM CDT) AV Peak Grad mmHg 10.63 mmHg RESULTING AGENCY Mean Aortic Valve Gradient (MAVG) 6 mmHg RESULTING AGENCY LV end elias diam cm 5.2 cm RESULTING AGENCY LV end sys diam cm 3.2 cm RESULTING AGENCY Aortic Root Diam cm 2.8 cm RESULTING AGENCY LA vol index ml/m2 27 ml/m2 RESULTING AGENCY LVOT Peak Jalil m/sec 1.13 m/sec RESULTING AGENCY AV Peak Jalil m/sec 1.63 m/sec RESULTING AGENCY MV Mean Grad mmHg 2 mmHg RESULTING AGENCY E/A Ratio 1.26 RESULTING AGENCY TR Jalil m/sec 1.65 m/sec RESULTI NG AGENCY E/E' 8.9 RESULTING AGENCY AV Area (VTI) cm2 2.25 cm2 RESULTING AGENCY SEPTUM DIASTOLIC CM 0.9 cm RESULTING AGENCY PW DIASTOLIC CM 0.9 cm RESU LTING AGENCY LA VOLUME 47.9 ml RESULTING AGENCY LV EF(estimated)% 58 RESULTING AGENCY Anatomical Region Laterality Modality CARDIO N/A Ultrasound Narrative 02/09/2025 6:26 AM CDT Transthoracic Echocardiography Report (TTE) Patient name MANAN Roldan 1975 Patient ID (UPI) [id number] Indications: Abnormal Physicial Findings. Study Date02/08/2025 Technical quality: Adequate Type of Study: TTE procedure: Adult Trans Thoracic Echo 2D Complete. Priority:RoutineHR: 65 bpmBP: 120/74 mmHg Conclusions Summary Normal LV size, thickness, systolic function. LVEF est 55-60%. Indeterminate diastolic function due to discrepant parameters. GLS -18.6. Normal right ventricular cavity size and normal systolic function. No significant valvular abnormalities. inadequate TR jet to estimate PASP. LA borderline dilated. The right atrium size is normal. Normal IVC and visualized portion of aorta. No pericardial effusion. No pleural effusion noted. Findings Mitral Valve The mitral valve is normal. No evidence of mitral stenosis. No significant mitral regurgitation. Aortic Valve The aortic valve is trileaflet with normal leaflet excursion. There is no evidence of aortic valve stenosis. There is no significant aortic valve insufficiency. Tricuspid Valve The tricuspid valve is normal. There is no evidence of tricuspid stenosis. There is no significant tricuspid regurgitation. There is no evidence of pulmonary hypertension. Pulmonic Valve The pulmonic valve structure appears normal. There is no evidence of pulmonic stenosis. There is no significant pulmonic valve regurgitation. Left Atrium LA borderline dilated. Left Ventricle Normal LV size, thickness, systolic function. LVEF est 55-60%. Indeterminate diastolic function due to discrepant parameters. GLS -18.6. Right Atrium The right atrium size is normal. Right Ventricle Normal right ventricular cavity size and normal systolic function. Pericardial Effusion No pericardial effusion. Pleural Effusion No pleural effusion noted. Miscellaneous Normal IVC and visualized portion of aorta. Valves Mitral Valve Peak E-Wave: 0.92 m/s Area (continuity): 2.3 cm^2 Peak A-Wave: 0.73 m/s Mean Velocity: 0.61 m/s Peak Gradient: 3.44 mmHg Mean Gradient: 2 mmHg Deceleration Time: 197 msec Tissue Doppler E' Velocity: 0.08 m/s E/E':8.9 E/A Ratio: 1.26 E/Lat E': 8.9 E/Med E':11.1 Aortic Valve Area (continuity): 2.25 cm^2 Mean Velocity: 1.08 m/s Area (VTI):2.25 cm^2 Mean Gradient: 6 mmHg Peak Velocity: 1.63 m/s AV VTI: 35.3 cm Peak Gradient: 10.63 mmHg Tricuspid Valve Peak E-Wave: 0.62 m/s Peak Gradient: 1.56 mmHg TR Velocity: 1.65 m/s TR Gradient: 10.89 mmHg Pulmonic Valve Peak Velocity: 1.1 m/s Mean Velocity: 0.84 m/s Peak Gradient: 4.84 mmHg Mean Gradient: 3 mmHg LVOT Peak Velocity: 1.13 m/s Mean Velocity: 0.76 m/s Peak Gradient: 5 mmHg Mean Gradient: 3 mmHg LVOT Diameter: 2 cm LVOT VTI: 25.3 cm Stroke Volume: 79 ml Stroke Volume Index: 44.38 ml/m^2 Structures Left Ventricle Diastolic Dimension: 5.2 cm Systolic Dimension: 3.2 cm Septum Diastolic: 0.9 cm Septum Systolic: 1.2 cm PW Diastolic: 0.9 cm PW Systolic: 1.3 cm Diastolic Length: 26.3 cm Systolic Length: 15.9 cm EF Calculated: 57.58% CI: 2.9 l/min*m^2 CO: 5.16 l/min RWT: 0.35 LV EDV: 81.8 ml FS: 38.46 % LV EDV Index: 46 m^2 LV Length: 7.05 cm LV ESV: 34.7 ml LVOT Diameter: 2 cm LV ESV Index: 19 m^2 Global Longitudinal Strain:-18.6 Right Ventricle RVOT (PLAX) diameter:3.2 cm Tissue Doppler RV S': 10.3 TAPSE: 1.61 cm Left Atrium LA Systolic Pressure: 13.15 mmHg LA Area: 16.4 cm^2 LA Volume: 47.9 ml LA Index: 27ml/m^2 Right Atrium RA Area: 11.7 cm^2 Great Vessels Aorta Ascending Aorta: 2.6 cm Aorta Root:2.8 cm Ascending Aorta Index:1.46 cm/m^2 Contractility Score LV regional wall motion: (0-Not visualized 1-Normal 1'-Hyperkinesis 2-Hypokinesis 3-Akinesis 4-Dyskinesis 5-Aneurysm) Demographics Age 49 Gender Female Race Height 62.01 in. Weight 170 lbs. BMI (BSA) 31.08 kg/m^2 (1.78 m^2) Mine Manager Parker Rosenthal Interpreting Vianca Referring Physician Luke Physician Procedure Note Luke Coley MD PhD - 02/09/2025 Transthoracic Echocardiography Report (TTE) Patient name [facility] 1975 Patient ID (UPI) [id number] Indications: Abnormal Physicial Findings. Study Date02/08/2025 Technical quality: Adequate Type of Study: TTE procedure: Adult Trans Thoracic Echo 2D Complete. Priority:RoutineHR: 65 bpmBP: 120/74 mmHg Conclusions Summary Normal LV size, thickness, systolic function. LVEF est 55-60%. Indeterminate diastolic function due to discrepant parameters. GLS -18.6. Normal right ventricular cavity size and normal systolic function. No significant valvular abnormalities. inadequate TR jet to estimate PASP. LA borderline dilated. The right atrium size is normal. Normal IVC and visualized portion of aorta. No pericardial effusion. No pleural effusion noted. Findings Mitral Valve The mitral valve is normal. No evidence of mitral stenosis. No significant mitral regurgitation. Aortic Valve The aortic valve is trileaflet with normal leaflet excursion. There is no evidence of aortic valve stenosis. There is no significant aortic valve insufficiency. Tricuspid Valve The tricuspid valve is normal. There is no evidence of tricuspid stenosis. There is no significant tricuspid regurgitation. There is no evidence of pulmonary hypertension. Pulmonic Valve The pulmonic valve structure appears normal. There is no evidence of pulmonic stenosis. There is no significant pulmonic valve regurgitation. Left Atrium LA borderline dilated. Left Ventricle Normal LV size, thickness, systolic function. LVEF est 55-60%. Indeterminate diastolic function due to discrepant parameters. GLS -18.6. Right Atrium The right atrium size is normal. Right Ventricle Normal right ventricular cavity size and normal systolic function. Pericardial Effusion No pericardial effusion. Pleural Effusion No pleural effusion noted. Miscellaneous Normal IVC and visualized portion of aorta. Valves Mitral Valve Peak E-Wave: 0.92 m/s Area (continuity): 2.3 cm^2 Peak A-Wave: 0.73 m/s Mean Velocity: 0.61 m/s Peak Gradient: 3.44 mmHg Mean Gradient: 2 mmHg Deceleration Time: 197 msec Tissue Doppler E' Velocity: 0.08 m/s E/E':8.9 E/A Ratio: 1.26 E/Lat E': 8.9 E/Med E':11.1 Aortic Valve Area (continuity): 2.25 cm^2 Mean Velocity: 1.08 m/s Area (VTI):2.25 cm^2 Mean Gradient: 6 mmHg Peak Velocity: 1.63 m/s AV VTI: 35.3 cm Peak Gradient: 10.63 mmHg Tricuspid Valve Peak E-Wave: 0.62 m/s Peak Gradient: 1.56 mmHg TR Velocity: 1.65 m/s TR Gradient: 10.89 mmHg Pulmonic Valve Peak Velocity: 1.1 m/s Mean Velocity: 0.84 m/s Peak Gradient: 4.84 mmHg Mean Gradient: 3 mmHg LVOT Peak Velocity: 1.13 m/s Mean Velocity: 0.76 m/s Peak Gradient: 5 mmHg Mean Gradient: 3 mmHg LVOT Diameter: 2 cm LVOT VTI: 25.3 cm Stroke Volume: 79 ml Stroke Volume Index: 44.38 ml/m^2 Structures Left Ventricle Diastolic Dimension: 5.2 cm Systolic Dimension: 3.2 cm Septum Diastolic: 0.9 cm Septum Systolic: 1.2 cm PW Diastolic: 0.9 cm PW Systolic: 1.3 cm Diastolic Length: 26.3 cm Systolic Length: 15.9 cm EF Calculated: 57.58% CI: 2.9 l/min*m^2 CO: 5.16 l/min RWT: 0.35 LV EDV: 81.8 ml FS: 38.46 % LV EDV Index: 46 m^2 LV Length: 7.05 cm LV ESV: 34.7 ml LVOT Diameter: 2 cm LV ESV Index: 19 m^2 Global Longitudinal Strain:-18.6 Right Ventricle RVOT (PLAX) diameter:3.2 cm Tissue Doppler RV S': 10.3 TAPSE: 1.61 cm Left Atrium LA Systolic Pressure: 13.15 mmHg LA Area: 16.4 cm^2 LA Volume: 47.9 ml LA Index: 27ml/m^2 Right Atrium RA Area: 11.7 cm^2 Great Vessels Aorta Ascending Aorta: 2.6 cm Aorta Root:2.8 cm Ascending Aorta Index:1.46 cm/m^2 Contractility Score LV regional wall motion: (0-Not visualized 1-Normal 1'-Hyperkinesis 2-Hypokinesis 3-Akinesis 4-Dyskinesis 5-Aneurysm) Demographics Age 49 Gender Female Race Height 62.01 in. Weight 170 lbs. BMI (BSA) 31.08 kg/m^2 (1.78 m^2) Mine Manager Parker Rosenthal Interpreting Vianca Referring Physician Luke Physician us Ritika Muriel Coronel DOCKING SAW OPERATOR, JAVA GOLDEN GATE DEVELOPER IMG ECHO ORDERABLES Edited Result - Final * XR CERVICAL SPINE INCLUDING FLEXION AND EXTENSION (6V OR MORE) (01/27/2025 9:18 AM CDT) Anatomical Region Laterality Modality Spine, C-spine N/A Digital Radiogra phy 01/27/2025 9:18 AM CDT Impressions 01/28/2025 3:19 PM CDT IMPRESSION: 1. No definite acute osseous abnormality of the cervical spine. 2. Additional findings detailed above. Narrative 01/28/2025 3:19 PM CDT DICTATING PHYSICIAN: Stephen Rosales M.D., [facility] EXAM: XR CERVICAL SPINE, 7 views, 7 images, 01/27/2025 9:18 AM COMPARISON: MRI performed same day, radiographs from 11/13/2024. INDICATION: 5 year history of chronic neck pain worsening over the last 2 months. No known injury/trauma. Pain radiates to the bilateral shoulders and lower back. Intermittent numbness and tingling in the right arm, limited range of motion in the neck. TECHNIQUE: AP, lateral, bilateral oblique, lateral flexion, lateral extension and odontoid views of the cervical spine. FINDINGS: Alignment: 1 to 2 mm posterior translation of C3 on C4 with otherwise acceptable cervical lordosis. Odontoid view demonstrates normal alignment of the lateral masses of C1 on C2. On lateral flexion image, there is expected straightening of the normal cervical lordosis without significant vertebral translation/subluxation. On lateral extension image, there is very slight increase in posterior translation of C3 on C4, now measuring 2 to 3 mm, with otherwise acceptable cervical lordosis. Bones: Vertebral body heights are maintained. No acute displaced fracture. Segmental analysis: Disc space heights are preserved. Mild hypertrophic facet joint arthropathy at C7-T1. [id number] neural foraminal stenoses which are better visualized on MRI performed same day. Soft tissues: Prevertebral soft tissues are unremarkable. Visualized chest: Visualized lung apices are clear. Additional findings: None. Procedure Note Stephen Rosales MD - 01/28/2025 DICTATING PHYSICIAN: Stephen Rosales M.D., [facility] EXAM: XR CERVICAL SPINE, 7 views, 7 images, 01/27/2025 9:18 AM COMPARISON: MRI performed same day, radiographs from 11/13/2024. INDICATION: 5 year history of chronic neck pain worsening over the last 2months. No known injury/trauma. Pain radiates to the bilateral shouldersand lower back. Intermittent numbness and tingling in the right arm,limited range of motion in the neck. TECHNIQUE: AP, lateral, bilateral oblique, lateral flexion, lateralextension and odontoid views of the cervical spine. FINDINGS: Alignment: 1 to 2 mm posterior translation of C3 on C4 with otherwiseacceptable cervical lordosis. Odontoid view demonstrates normal alignmentof the lateral masses of C1 on C2. On lateral flexion image, there isexpected straightening of the normal cervical lordosis without significantvertebral translation/subluxation. On lateral extension image, there isvery slight increase in posterior translation of C3 on C4, now measuring 2to 3 mm, with otherwise acceptable cervical lordosis. Bones: Vertebral body heights are maintained. No acute displaced fracture. Segmental analysis: Disc space heights are preserved. Mild hypertrophicfacet joint arthropathy at C7-T1. [id number] neural foraminalstenoses which are better visualized on MRI performed same day. Soft tissues: Prevertebral soft tissues are unremarkable. Visualized chest: Visualized lung apices are clear. Additional findings: None. IMPRESSION: 1. No definite acute osseous abnormality of the cervical spine. 2. Additional findings detailed above. us Ritika Coronel DOCKING SAW OPERATOR, JAVA GOLDEN GATE DEVELOPER IMG DIAGNOSTIC ORDER JOSE Final Result * MRI C-SPINE W/O CONTRAST (01/27/2025 9:00 AM CDT) Anatomical Region Laterality Modality Spine, C-spine N/A Magnetic Resonan ce 01/27/2025 9:00 AM CDT Impressions 01/28/2025 3:24 PM CDT IMPRESSION: 1. No acute findings. 2. Mild multilevel cervical spondylosis. 3. Mild spinal stenosis at C3/4, and C5/6. 4. Mild multilevel neural foraminal stenosis. Please see above for detail. Narrative 01/28/2025 3:24 PM CDT DICTATING PHYSICIAN: Hood Devlin Jr., MD EXAMINATION: MRI C-SPINE W/O CONTRAST, HISTORY: Anesthesia of skin, Other abnormal findings on diagnostic imaging of central nervous system, Other symptoms and signs involving the nervous system. TECHNIQUE: Imaging protocol: Multisequence and multiplanar images were acquired of the cervical spine. Contrast: None. COMPARISON: Cervical spine radiographs November 13, 2024. FINDINGS: Craniocervical junction: Visualized portions of the posterior fossa and craniocervical junction are normal in appearance. Vertebrae: Vertebral body heights and alignment are within normal limits. Marrow signal is age-appropriate. There is mild multilevel degenerative disc disease and degenerative endplate change. Spinal cord: There is no cord compression. Segmental analysis: C2-C3: Unremarkable, without significant spinal canal or foraminal compromise. C3-C4: There is mild posterior disc osteophyte complex and bilateral uncovertebral osteophyte formation, right greater than left. This results in mild spinal stenosis. The neural foramina are adequate. C4-C5: There is a posterior disc osteophyte complex and mild uncovertebral osteophyte formation, right greater than left. The spinal canal and left neural foramen are adequate. There is mild right neural foraminal stenosis. C5-C6: There is mild posterior disc osteophyte complex and uncovertebral osteophyte formation. This results in mild spinal canal and right neural foraminal stenosis. The left neural foramen is adequate. C6-C7: There is a posterior disc osteophyte complex. The spinal canal and neural foramina are adequate. C7-T1: There is mild central disc osteophyte versus ossification of the posterior longitudinal ligament. The spinal canal and neural foramina are adequate. Procedure Note Hood Devlin MD - 01/28/2025 DICTATING PHYSICIAN: Hood Devlin Jr., MD EXAMINATION: MRI C-SPINE W/O CONTRAST, HISTORY: Anesthesia of skin, Other abnormal findings on diagnostic imagingof central nervous system, Other symptoms and signs involving the nervoussystem. TECHNIQUE: Imaging protocol: Multisequence and multiplanar images were acquired ofthe cervical spine. Contrast: None. COMPARISON: Cervical spine radiographs November 13, 2024. FINDINGS: Craniocervical junction: Visualized portions of the posterior fossa andcraniocervical junction are normal in appearance. Vertebrae: Vertebral body heights and alignment are within normal limits.Marrow signal is age-appropriate. There is mild multilevel degenerativedisc disease and degenerative endplate change. Spinal cord: There is no cord compression. Segmental analysis: C2-C3: Unremarkable, without significant spinal canal or foraminalcompromise. C3-C4: There is mild posterior disc osteophyte complex and bilateraluncovertebral osteophyte formation, right greater than left. This resultsin mild spinal stenosis. The neural foramina are adequate. C4-C5: There is a posterior disc osteophyte complex and mild uncovertebralosteophyte formation, right greater than left. The spinal canal and leftneural foramen are adequate. There is mild right neural foraminalstenosis. C5-C6: There is mild posterior disc osteophyte complex and uncovertebralosteophyte formation. This results in mild spinal canal and right neuralforaminal stenosis. The left neural foramen is adequate. C6-C7: There is a posterior disc osteophyte complex. The spinal canal andneural foramina are adequate. C7-T1: There is mild central disc osteophyte versus ossification of theposterior longitudinal ligament. The spinal canal and neural foramina areadequate. IMPRESSION: 1. No acute findings. 2. Mild multilevel cervical spondylosis. 3. Mild spinal stenosis at C3/4, and C5/6. 4. Mild multilevel neural foraminal stenosis. Please see above fordetail. us Ritika Coronel DOCKING SAW OPERATOR, JAVA GOLDEN GATE DEVELOPER IMG MR ORDERABLES Fi nal Result * CBC WITH AUTO DIFFERENTIAL (01/27/2025 8:26 AM CDT) Only the most recent of2 resultswithin the time period is included. WBC 9.35 4.00 - 12.00 10(3)/mcL 01/27/2025 8:45 AM CDT [facility] RBC 4.95 3.80 - 5.30 10(6)/mcL 01/27/2025 8:45 AM CDT [facility] HEMOGLOBIN (HGB) 14.8 12.0 - 15.8 g/dL 01/27/2025 8:45 AM CDT [facility] HEMATOCRIT (HCT) 44.0 36.0 - 47.0 % 01/27/2025 8:45 AM CDT [facility] MCV 88.9 82.0 - 96.0 fL 01/27/2025 8:45 AM CDT [facility] MCH 29.9 26.0 - 34.0 pg 01/27/2025 8:45 AM CDT [facility] MCHC 33.6 31.0 - 36.0 g/dL 01/27/2025 8:45 AM CDT [facility] PLATELET COUNT 264 140 - 440 10(3)/mcL 01/27/2025 8:45 AM CDT [facility] RDW 13.9 11.8 - 15.5 % 01/27/2025 8:45 AM CDT [facility] MPV 10.3 9.7 - 12.4 fL 01/27/2025 8:45 AM CDT [facility] NEUTROPHILS 64.0 47.0 - 73.0 % 01/27/2025 8:45 AM CDT [facility] LYMPHOCYTES 26.7 18.0 - 42.0 % 01/27/2025 8:45 AM CDT [facility] MONOCYTES 6.4 4.0 - 12.0 % 01/27/2025 8:45 AM CDT [facility] EOSINOPHILS 2.1 0.0 - 5.0 % 01/27/2025 8:45 AM CDT [facility] BASOPHILS 0.5 0.0 - 1.0 % 01/27/2025 8:45 AM CDT [facility] IMMATURE GRANULOCYTE 0.3 0.0 - 0.4 % 01/27/2025 8:45 AM CDT [facility] ABSOLUTE NEUTROPHILS 5.97 1.60 - 7.70 10(3)/mcL 01/27/2025 8:45 AM CDT [facility] ABSOLUTE LYMPHOCYTES 2.50 1.30 - 3.20 10(3)/mcL 01/27/2025 8:45 AM CDT [facility] ABSOLUTE MONOCYTES 0.60 0.20 - 1.00 10(3)/mcL 01/27/2025 8:45 AM CDT [facility] ABSOLUTE EOSINOPHIL 0.20 0.00 - 0.40 10(3)/mcL 01/27/2025 8:45 AM CDT [facility] ABSOLUTE BASOPHILS 0.05 0.00 - 0.10 10(3)/mcL 01/27/2025 8:45 AM CDT [facility] ABSOLUTE IMMATURE GRANULOCYTE 0.03 0.00 - 0.03 10 (3) mcL. 01/27/2025 8:45 AM CDT [facility] NRBC PER 100 WBC 0 01/28/20 8:45 AM CDT [facility] Blood Venipuncture / Unknown 01/27/2025 8:26 AM CDT 01/27/2025 8:41 AM CDT Guzman Rosales DO HEMATOLOGY ORDERABLES Fin al Result [facility] [address] [place] [address] * IGE, IMMUNOGLOBULIN E TOTAL (01/27/2025 8:26 AM CDT) IGE 44 <=214 kU/L 01/28/2025 1:43 PM CDT [facility] Blood Venipuncture / Unknown 01/27/2025 8:26 AM CDT 01/27/2025 8:40 AM CDT us Guzman Rosales DO CHEMISTRY ORDERABLES Rosi l Result [facility] [address] [place] [address], [place] * RHYTHM STRIP (01/09/2025 12:00 AM CDT) 01/09/2025 Provider Scan IMG ECG ORDERABLES Final Result RESULTING AGENCY * XR CHEST SINGLE VIEW PORTABLE (01/08/2025 11:17 PM CDT) Anatomical Region Laterality Modality Chest N/A Digital Radiogra phy 01/08/2025 11:1 7 PM CDT Impressions 01/09/2025 6:09 AM CDT IMPRESSION: No acute pulmonary disease. Narrative 01/09/2025 6:09 AM CDT XR CHEST SINGLE VIEW PORTABLE : 01/08/2025 11:17 PM DICTATING PHYSICIAN: GREG DOCKERY [facility]. 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 HX: Smoker 0.30ppd, Asthma COMPARISON: None. TECHNIQUE: Single view radiograph of the chest was obtained. FINDINGS: Cardiomediastinal silhouette: Within normal limits. Pulmonary vascularity: Within normal limits. Lung parenchyma: Clear of nodules and infiltrates. Pleura: No evidence for effusion or pneumothorax. Osseous structures: Regional osseous structures are intact. Age-appropriate degenerative changes noted. Support lines and tubes: None. Procedure Note Greg Dockery MD - 01/09/2025 XR CHEST SINGLE VIEW PORTABLE : 01/08/2025 11:17 PM DICTATING PHYSICIAN: GREG DOCKERY [facility]. 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 HX: Smoker0.30ppd, Asthma COMPARISON: None. TECHNIQUE: Single view radiograph of the chest was obtained. FINDINGS: Cardiomediastinal silhouette: Within normal limits. Pulmonary vascularity: Within normal limits. Lung parenchyma: Clear of nodules and infiltrates. Pleura: No evidence for effusion or pneumothorax. Osseous structures: Regional osseous structures are intact.Age-appropriate degenerative changes noted. Support lines and tubes: None. IMPRESSION: No acute pulmonary disease. Juwan Larson MD IMG DIAGNOSTIC ORDERABLES Final Result * TROPONIN I, HIGH SENSITIVITY (HSTRP) (01/08/2025 11:15 PM CDT) Pathologist [facility] TROPONIN I, HIGH SENSITIVITY- HOLLIDAY <2.7 <=14.0 ng/L 01/08/2025 11:51 PM CDT [facility] Comment: High-sensitivity troponin I results are reported in ng/L making the result appear to be 1,000 times higher than the contemporary troponin I value which is reported in ng/ml. Results from [place]. Blood Venipuncture / Unknown 01/08/2025 11:15 PM CDT 01/08/2025 11:22 PM CDT Juwan Larson MD CHEMISTRY ORDERABLES Rosi l Result [facility] [address] [place] [address] * Manual Differential (01/08/2025 11:15 PM CDT) NEUTROPHILS % 63.0 47.0 - 73.0 % 01/09/2025 12:36 AM CDT [facility] LYMPHOCYTES % 29.0 18.0 - 42.0 % 01/09/2025 12:36 AM CDT [facility] MONOCYTES % 7.0 4.0 - 12.0 % 01/09/2025 12:36 AM CDT [facility] EOSINOPHILS % 1.0 0.0 - 5.0 % 01/09/2025 12:36 AM CDT [facility] BASOPHILS % 0.0 0.0 - 1.0 % 01/09/2025 12:36 AM CDT [facility] NEUTROPHILS ABSOLUTE 6.22 1.60 - 7.70 10(3)/[facility] 01/09/2025 12:36 AM CDT [facility] LYMPHOCYTES ABSOLUTE 2.87 1.30 - 3.20 10(3)/[facility] 01/09/2025 12:36 AM CDT [facility] MONOCYTES ABSOLUTE 0.69 0.20 - 1.00 10(3)/[facility] 01/09/2025 12:36 AM CDT [facility] EOSINOPHILS ABSOLUTE 0.10 0.00 - 0.40 10(3)/[facility] 01/09/2025 12:36 AM CDT [facility] BASOPHILS ABSOLUTE 0.00 0.00 - 0.10 10(3)/[facility] 01/09/2025 12:36 AM CDT [facility] WBC MORPH STATUS Normal 01/10/20 12:36 AM CDT [facility] RBC MORPH STATUS Normal 01/10/20 12:36 AM CDT [facility] PLATELET STATUS Normal 12:36 AM CDT [facility] Blood Venipuncture / Unknown 01/08/2025 11:15 PM CDT 01/08/2025 11:58 PM CDT us Juwan Larson MD HEMATOLOGY ORDERABLES Fin al Result [facility] [address] [place] [address] * (ABNORMAL) Comprehensive Metabolic Panel (Cmp) [id number] (01/08/2025 11:15 PM CDT) SODIUM 139 136 - 145 mmol/L 01/08/2025 11:46 PM CDT [facility] POTASSIUM 4.2 3.5 - 5.1 mmol/L 01/08/2025 11:46 PM CDT [facility] CHLORIDE 104 98 - 107 mmol/L 01/08/2025 11:46 PM CDT [facility] CO2, VENOUS 25 22 - 30 mmol/L 01/08/2025 11:46 PM CDT [facility] ANION GAP 14.2 <18.0 mmol/L 01/08/2025 11:46 PM CDT [facility] GLUCOSE 87 70 - 99 mg/dL 01/08/2025 11:46 PM CDT [facility] BUN 15 5 - 18 mg/dL 01/08/2025 11:46 PM CDT [facility] CREATININE, BLOOD 0.77 0.60 - 1.00 mg/dL 01/08/2025 11:46 PM CDT [facility] BUN/CREATININE RATIO 19 12 - 20 ratio 01/08/2025 11:46 PM CDT [facility] TOTAL PROTEIN 7.3 6.0 - 8.0 g/dL 01/08/2025 11:46 PM CDT [facility] ALBUMIN 4.4 3.5 - 5.0 g/dL 01/08/2025 11:46 PM CDT [facility] A/G RATIO 1.5 1.0 - 2.2 01/08/2025 11:46 PM CDT [facility] CALCIUM 9.1 8.7 - 10.5 mg/dL 01/08/2025 11:46 PM CDT [facility] T BILI 0.5 0.2 - 1.2 mg/dL 01/08/2025 11:46 PM CDT [facility] SGOT (AST) 31 <43 U/L 01/08/2025 11:46 PM CDT [facility] SGPT (ALT) 69(H) <56 U/L 01/08/2025 11:46 PM CDT [facility] ALKALINE PHOSPHATASE 59 40 - 150 U/L 01/08/2025 11:46 PM CDT [facility] GFR, ESTIMATED >60 >=60 01/08/2025 11:46 PM CDT [facility] Comment: Creatinine Clearance is the preferred criteria for selecting drug dose adjustments in renally impaired patients. The GFR is provided as additional pertinent clinical information. GFR is reported in mL/min/1.73 sq m. Calculation based on the 2020 Chronic Kidney Disease Epidemiology Collaboration (CKD-EPI) equation refit without adjustment for race. GFR, EST. >60 >=60 025 11:46 PM CDT [facility] Comment: Creatinine Clearance is the preferred criteria for selecting drug dose adjustments in renally impaired patients. The GFR is provided as additional pertinent clinical information. GFR is reported in mL/min/1.73 sq m. Calculation based on the 2009 Chronic Kidney Disease Epidemiology Collaboration (CKD-EPI). GFR, EST. NONAFRICAN >60 >=60 01/08/2025 11:46 PM CDT [facility] Comment: Creatinine Clearance is the preferred criteria for selecting drug dose adjustments in renally impaired patients. The GFR is provided as additional pertinent clinical information. GFR is reported in mL/min/1.73 sq m. Calculation based on the 2009 Chronic Kidney Disease Epidemiology Collaboration (CKD-EPI). Blood Venipuncture / Unknown 01/08/2025 11:15 PM CDT 01/08/2025 11:22 PM CDT us Juwan Larson MD CHEMISTRY ORDERABLES Rosi hyman Result [facility] [address] [place] [address] * EKG 12 LEAD (01/08/2025 11:04 PM CDT) Ventricular Rate 67 BPM EXTERNAL EKG Atrial Rate 67 BPM EXTERNAL EKG P-R Interval 144 ms EXTERNAL EKG QRS Duration 80 ms EXTERNAL EKG Q-T Duration 386 ms EXTERNAL EKG QTC CALCULATION 407 ms EXTERNAL EKG P [place] 59 degrees EXTERNAL EKG R [place] 69 degrees EXTERNAL EKG T [place] 17 degrees EXTERNAL EKG 01/08/2025 11:0 4 PM CDT Impressions EXTERNAL EKG - 01/11/2025 4:27 PM CDT Normal sinus rhythm Nonspecific T wave abnormality Abnormal ECG When compared with ECG of 03-SEP-2024 23:58, No significant change was found Confirmed by Lisa Mota ([id number]) on 01/11/2025 4:27:03 PM Narrative Procedure Note Lisa Mota DO - 01/11/2025 IMPRESSION: Normal sinus rhythm Nonspecific T wave abnormality Abnormal ECG When compared with ECG of 03-SEP-2024 23:58, No significant change was found Confirmed by Lisa Mota ([id number]) on 01/11/2025 4:27:03 PM Juwan Larson MD IMG ECG ORDERABLES Final Result Performing Organization Address City/[facility]/ZIP Co de Phone Number EXTERNAL EKG * EKG SCAN (01/08/2025 12:00 AM CDT) 01/08/2025 Provider Scan IMG ECG ORDERABLES Final Result RESULTING AGENCY * DAQUAN SCREENING BILATERAL DIGITAL W CAD W LUCIO (03/25/2024 1:33 PM INFORMATION WRITER) Anatomical Region Laterality Modality breast Bilateral Mammography 03/25/2024 1:30 PM INFORMATION WRITER Narrative 03/26/2024 10:24 AM INFORMATION WRITER - DAQUAN SCREENING BILATERAL DIGITAL W CAD [...] to exams dated: 02/05/2023, 12/20/2021, and 01/03/[address] [facility]. BREAST TISSUE:There are scattered areas of fibroglandular [...] next screening exam. Electronically signed by: Angela monroy/penrad:03/25/2024 22:26:51 Telephone Operators Supervisor(s): RT Arianne(R)(M), [facility] letter sent: Normal Exam Reading location: [place] [...] to exams dated: 02/05/2023, 12/20/2021, and 01/03/[address] [facility]. BREAST TISSUE:There are scattered areas of fibroglandular [...] next screening exam. Electronically signed by: Angela monroy/penrad:03/25/2024 22:26:51 Telephone Operators Supervisor(s): RT Arianne(R)(M), [facility] letter sent: Normal Exam Reading location: [place] Mammogram BI-RADS: Category 1: Negative Kimberly Gannon APRN, CNP IMYadiel MAMMO ORDERABLES Final Result from Last 3 Months or Most Recently Relevant to Health Maintenance Insurance MEDICAID [place] MEDICAID RAI Care Teams Assistant Corporate Secretary Relationship Specialty Start Date End Date Virginia Donato APRN, CNP PCP - General Family Medicine 11/30/15 Isabel Pepe MD [address] [place] [address] Consulting Physician Urology 12/27/23 Luis Miguel Naranjo MD [address] [place] [address] Consulting Physician Obstetrics & Gynecology 02/05/24 Luis Miguel Naranjo MD [address] [place] [address] Consulting Physician Obstetrics & Gynecology 03/13/24 Ritika Coronel APRN, [employer] [address] [place] [address] Nurse Practitioner Advanced Practice Nurse 12/01/24
--- NOTE | 2025-03-24 18:14 | ED_ITS ---
HPI - URI/Sore Throat General Chief Complaint: Upper Respiratory Infection Stated Complaint: throat Time Seen by Provider: 03/24/25 18:00 Source: patient, RN notes reviewed and old records reviewed Mode of arrival: ambulatory Limitations: no limitations History of Present Illness HPI Narrative: 49 year old female [facility] with complaints of cough, which is productive with congestion and runny nose since the 15 of March. Patient reports that now she is hoarse and has a sore throat.Patient reports history of asthma and she is daily tobacco user of .5 ppd.Patient reports that she has been using her inhaler, using nasal spray and taking Mucinex and DayQuil for her symptoms without resolution. MD elicited complaint: cough, sore throat, rhinorrhea, nasal congestion and other Onset (ago): day(s) (March 15) Consistency: progressively worsening Severity: moderate Pain scale (0-10): 5 Able to tolerate fluids by mouth: Yes Treatments prior to arrival: cold medicine (dayquil) and other (inhalers mucinex and nasal spray) Related Data Home Medications ?Medication ?Instructions ?Recorded ?Confirmed ?Last Taken ?Type albuterol sulfate 90 mcg/actuation inhalation 09/30/24 Unknown History aerosol inhaler azelastine 137 mcg (0.1 %) nasal intranasal 09/30/24 Unknown History spray budesonide-formoterol HFA 80 inhalation 09/30/24 Unkn own History mcg-4.5 mcg/actuation aerosol inhaler (Symbicort) fexofenadine 180 mg tablet mg 09/30/24 Unknown Histor y (Allergy Relief (fexofenadine)) pantoprazole 40 mg tablet,delayed mg PO 09/30/24 Unkn own History release atorvastatin 20 mg tablet mg 10/12/24 Unknown History Allergies Allergy/AdvReac Type Severity Reaction Status Date / Time No Known Allergies Allergy Verified 03/24/25 18:07 Review of Systems Review of Systems: CONSTITUTIONAL: reports malaise,no chills, sweats, or fever. EYES: Denies visual changes, redness, or discharge. ENT: Reports rhinorrhea, congestion, sinus pain, no otalgia and +sore throat, ho arseness CARDIOVASCULAR: Denies chest pain, palpitations, or edema. RESPIRATORY: Reports productive cough ? Denies dyspnea. GASTROINTESTINAL: Denies abdominal pain, nausea, vomiting, diarrhea SKIN: Denies rash or itching. MUSCULOSKELETAL: Denies myalgia. NEUROLOGIC: Denies headache. All systems reviewed & are unremarkable except as noted in HPI and below PMFSH Past Medical History Medical History (Updated 03/26/25 @ 11:45 by Charmaine Bajwa APRN) GERD (gastroesophageal reflux disease) Asthma Surgical History Surgical History History of bilateral tubal ligation Family History Family History Other Heart disease Throat cancer Social History Social History (Updated 03/26/25 @ 11:39 by Charmaine Bajwa APRN) Smoking packs per day: 0.5 Smoking cigarettes per day: 10.0 Smoking status: Current every day smoker Alcohol intake: current Substance use type: does not use Living arrangements: with family Gender identity (if verbalized by the patient): Female Comments At time of signature, agree with nursing past medical, surgical, social and family history. There is no relevant family history pertinent to the presenting complaint Exam Narrative: GENERAL: Well-appearing, well-nourished, and in no acute distress. HEAD: Normocephalic EYES: PERRLA, conjunctivae clear ENT: Nares clear, turbinates edematous and erythematous, clear discharge. Mucous membranes moist. TM pearly sharma with dull light reflex bilaterally; no tragal tenderness. Oropharynx erythematous without lesions. Tonsils minimally enlarged and without exudate, no drooling, + hoarseness, no trismus, uvula midline.post nasal drainage NECK: Supple. No lymphadenopathy CHEST:scattered wheezes noted on auscultation, breath sounds equal. +wheezing, no rhonchi, rales, or stridor. No respiratory distress, speaks in full sentences.productive cough SAO2 99% on room air HEART: Regular rate and rhythm. No murmur heard. SKIN: Warm, dry, no rash. NEURO: Alert and oriented x3. PSYCH: Normal mood and affect Course Course Level of Care: Express Care Visit Vital Signs Vital signs: Vital Signs Temperature 36.6 C 03/24/25 17:47 Pulse Rate 64 03/24/25 17:47 Respiratory Rate 16 03/24/25 17:47 Blood Pressure 123/62 03/24/25 17:47 Pulse Oximetry 99 03/24/25 17:47 Oxygen Delivery Room Air 03/24/25 17:47 Temperature 36.6 C 03/24/25 17:47 Pulse Rate 64 03/24/25 17:47 Respiratory Rate 16 03/24/25 17:47 Blood Pressure 123/62 03/24/25 17:47 Pulse Oximetry 99 03/24/25 17:47 Oxygen Delivery Room Air 03/24/25 17:47 reviewed [facility] Narrative Medical decision making narrative: 49 year old female with history of asthma and tobacco abuse presents to express care with productive cough and nasal congestion since 15 of March, now having sore throat and hoarseness, Strep screen negative,with culture sent. Appropriate for ooutatient care with anticipatory guidance and reasons to seek care in ED reviewed with patient with understanding voiced. Differential Diagnosis Differential Diagnosis: Differential diagnostic considerations for upper respiratory infection include upper respiratory infection, croup, otitis media, sinusitis, viral infection, bronchitis, influenza, pharyngitis, strep, uvulitis.? Lab Data [facility] Lab Attestation statement: I personally reviewed the patient's lab results. Lab results narrative: strep screen negative, culture sent Labs: Lab Results 03/24/25 Range/Units 18:17 POC Grp A Strep Screen Negative (Negative) reviewed Critical Care Time Critical Care Time Critical Care Time: No Discharge Plan Discharge Clinical Impression: Bronchitis Patient Disposition: Home Condition: Stable Instructions: Antibiotic Form, Acute Bronchitis (ED) Additional Instructions: Increase fluids especially juices and water [id number] cough and cold medicine of your choice for your symptoms continue Catia daily Continue your inhaler/nebulizer as directed Steroids as directed--take with food heat to the face 20-30 minutes 4-6 times a day for pain Salt water gargles, throat lozenges or throat sprays as desired Antibiotic as directed--finished the medication If your symptoms persist, change or worsen significantly before you can contact your personal physician then please, without delay, go to the emergency department for further evaluation. Follow-up with PCP in 7-10 days or sooner if needed Patient Language: Belarusian Prescriptions: New prednisone 20 mg tablet 40 mg PO DAILY 5 Days Qty: 10 0RF azithromycin 250 mg tablet See Rx Instructions .ROUTE .COMPLEX Qty: 6 0RF Rx Instructions: For 250 mg dose pack: take 500 mg today (day 1), then 250 mg for 4 days (days 2-5) No Action fexofenadine [Allergy Relief (fexofenadine)] 180 mg tablet pantoprazole 40 mg tablet,delayed release (DR/EC) PO azelastine 137 mcg (0.1 %) spray,non-aerosol INTRANASAL albuterol sulfate 90 mcg/actuation HFA aerosol inhaler INHALATION budesonide-formoterol [Symbicort] 80-4.5 mcg/actuation HFA aerosol inhaler INHALATION atorvastatin 20 mg tablet cyclobenzaprine 10 mg tablet 10 mg PO TID PRN (Reason: muscle spasm) Qty: 20 0RF Follow-up/Referrals: Kinga,Virginia Richardson APN [Primary Care Provider, Unknown] Time of Disposition: 18:47 Quality Sony Coma Scale Eyes: Open Verbal: Oriented and Alert Motor: Follows Commands [place] Coma Total Score: 15
[2025-03-24 18:20] LABS: EDSTREPNEGPOS1 Negative (Negative)
== END 2025-03-24 19:02 | disposition home or self-care (01) ==
PROVIDERS: Emergency Provider Registered Nurse; PCP Nurse Practitioner Family
DX: J40 Bronchitis, not specified as acute or chronic (principal); F17.210 Nicotine dependence, cigarettes, uncomplicated; J45.909 Unspecified asthma, uncomplicated; K21.9 Gastro-esophageal reflux disease without esophagitis
CPT/HCPCS: 87081; 87880; 99213; G0463